=== PATIENT | female | born 1960 | race Caucasian/White ===

== ENCOUNTER 2016-12-18 11:44 | Observation (INO) ==
[2016-12-18] MEDS ORDERED: methylPREDNISolone 125 MG/2 ML VIAL IVP ONE (12:26)
[2016-12-18] MEDS ORDERED: Ondansetron 4 MG/2 ML VIAL IVP ONE ×2 (12:27→15:38)
[2016-12-18] MEDS ORDERED: *HR* HYDROmorphone (PF) 1 MG/ML SYRINGE IVP ONE ×2 (12:27→15:38)
--- NOTE | 2016-12-18 12:30 | Emergency Department Note ---
Disposition Clinical Impression: DJD (degenerative joint disease), lumbar, History of cervical spinal surgery, Weakness of both upper extremities, Left leg weakness, Diverticulosis, Foraminal stenosis of cervical region, Elevated C-reactive protein (CRP), Elevated erythrocyte sedimentation rate, Diabetes Disposition: Admitted As Inpatient Referrals: Akhil Spivey DO [Primary Care Provider] - General Adult HPI - General Chief complaint: ED Neuro Symptoms/Deficit Stated complaint: Upper and Lower Extremity complaint Source: patient Limitations: no limitations - History of Present Illness HPI Narrative: 56-year-old female with a history of cervical surgery within the last year reports emergency department complaining of numbness and weakness in the upper extremities bilaterally and left lower extremity. She woke up this morning this way. There is no history of confusion or dysarthria. No difficulty seeing or hearing. The patient denies acute trauma. She has chronic neck pain and chronic cephalgia. She is not anticoagulated apart from Plavix and aspirin. The patient states that she had a heart catheterization about a week ago which was negative. She has cardiac stents. The patient denies chest pain or shortness of breath. No history of leg swelling or pain or coughing up blood no abdominal pain vomiting diarrhea or acute back pain no urinary symptoms noted. No bowel or bladder problems. The patient has no previous history of CVA. She reports she was in her usual state of health at bedtime last night and woke up with the numbness and weakness in the upper extremities and left lower extremity. Pain Scale: 10 - Related Data Home Medications Medication Instructions Recorded Confirmed Albuterol Neb [AccuNeb] 0.63 mg IH Q6H PRN 12/27/15 12/18/16 Dextroamphetamine/Amphetamine 15 mg PO QAM 12/27/15 12/18/16 [Adderall Xr 15 mg Capsule] Gabapentin [Neurontin] 300 mg PO QID 12/27/15 12/18/16 Levothyroxine [Synthroid] 100 mcg PO QAM 12/27/15 12/18/16 Linaclotide [Linzess] 145 mcg PO DAILY 12/27/15 12/18/16 Metformin HCl [Glucophage] 1,000 mg PO BID 12/27/15 12/18/16 Oxygen 3 l NS HS 12/27/15 12/18/16 Ranitidine HCl [Heartburn Relief] 150 mg PO BID 12/27/15 12/18/16 diazePAM [Valium] 5 mg PO TID PRN 12/27/15 12/18/16 Albuterol Sulfate [Albuterol 1 - 2 puff IH Q4-6H PRN 04/13/16 12/18/16 Inhaler] Budesonide/Formoterol 80/4.5 2 puff IH BID 12/05/16 12/18/16 [Symbicort 80/4.5] Nitroglycerin 0.4 mg SL Q5M PRN 12/05/16 12/18/16 Oxycodone HCl/Acetaminophen 1 each PO Q6H PRN 12/05/16 12/18/16 [Percocet 10-325 mg Tablet] Atorvastatin [Lipitor] 40 mg PO Q48H 12/18/16 12/18/16 Umeclidinium Waite [Incruse 62.5 mcg IH DAILY 12/18/16 12/18/16 Ellipta] Previous Rx's Medication Instructions Recorded Aspirin 81 mg PO DAILY #30 tab.chew 04/12/16 Clopidogrel [Plavix] 75 mg PO DAILY #30 tablet 04/12/16 Carvedilol [Coreg] 6.25 mg PO BIDWM #60 tablet 12/05/16 Isosorbide MONOnitrate (24 HR) 60 mg PO DAILY #30 tab.er.24h 12/05/16 [Imdur] Losartan/HCTZ [Hyzaar 50-12.5 2 each PO DAILY #60 tablet 12/05/16 Tablet] Allergies Allergy/AdvReac Type Severity Reaction Status Date / Time morphine AdvReac Nausea Verified 12/05/16 08:23 All systems ED: reviewed and negative except as stated. Past Medical History - Past Medical History Medical history: Reports: COPD, coronary artery disease, diabetes, hyperlipidemia, hypertension, thyroid disease Surgical history: Reports: appendectomy, cholecystectomy, hysterectomy, orthopedic, other, other Psychiatric history: Reports: no psych history [employer] history: Reports: non-contributory - Social History Smoking Status: Current every day smoker Smokeless Tobacco Status: No Alcohol use: Reports: rarely Drug use: Reports: none Physical Exam - General Limitations: no limitations General appearance: alert, in no apparent distress - Head Head exam: atraumatic, normocephalic, normal inspection - Eye Eye exam: Present: normal appearance, PERRL, EOMI. Absent: scleral icterus, conjunctival injection, miosis, mydriasis - ENT ENT exam: normal exam, normal oropharynx, mucous membranes moist, TM's normal bilaterally, normal external ear exam - Neck Neck exam: Present: normal inspection, full ROM, trachea midline, tenderness. Absent: meningismus - Chest Chest inspection: Present: symmetric chest wall rise. Absent: tenderness - Respiratory Respiratory exam: Present: normal lung sounds bilaterally. Absent: respiratory distress, wheezes, stridor, accessory muscle use, prolonged expiratory phase - Cardiovascular Cardiovascular exam: Present: regular rate, normal rhythm, normal heart sounds - Abdominal Exam Abdominal exam: Present: soft, Non-Tender, normal bowel sounds. Absent: tenderness, distention, guarding, rebound, rigidity, pulsatile mass - Extremities Exam Extremities exam: Present: normal inspection, full ROM, normal capillary refill. Absent: tenderness, pedal edema, joint swelling, calf tenderness - Expanded Lower Extremity Exam Lower leg exam: Absent: Homans' sign Neurovascular/Tendon exam: Present: normal capillary refill. Absent: motor deficit, sensory deficit, tendon deficit, extremity cold to touch, pallor - Back Exam Back exam: Present: normal inspection, full ROM. Absent: tenderness, CVA tenderness (R), CVA tenderness (L), vertebral tenderness - Neurological Exam Neurological exam: Present: alert, oriented X3, CN II-XII intact, motor sensory deficit (Bilateral upper extremity weakness left lower extremity weakness noted. Right lower extremity has good strength. The patient describes numbness in the upper extremities bilaterally and left lower extremity but has no mary objective sensory loss in any extremity.) - Psychiatric Psychiatric exam: Present: normal affect, normal mood - Skin Skin exam: Present: warm, dry, intact, normal color. Absent: rash, cyanosis, diaphoresis, erythema, pallor, mottled Course Vital Signs Temperature 98.0 F 12/18/16 11:46 Pulse Rate 107 12/18/16 11:46 Respiratory Rate 18 12/18/16 11:46 Blood Pressure 165/84 12/18/16 11:46 O2 Sat by Pulse Oximetry 97 12/18/16 11:46 Temperature 98.0 F 12/18/16 11:46 Pulse Rate 91 12/18/16 15:58 Respiratory Rate 18 12/18/16 15:58 Blood Pressure 130/87 12/18/16 15:58 O2 Sat by Pulse Oximetry 97 12/18/16 15:58 Oxygen Delivery Oxygen Delivery Room Air Medical Decision Making - MDM Narrative Medical decision making narrative: The patient complains of bilateral upper extremity weakness and left lower extremity weakness. She is able to move her arms and does have sensation. The patient has a known history of cervical sorter and cervical surgery. Her ESR and CRP are up. The patient is diabetic. The patient was given aspirin ED as well as Solu-Medrol and pain control measures. Based on the patient's concerns for weakness and numbness in the extremities as well as significant risk factors for central or peripheral or spinal disease, I thought it would be appropriate to admit the patient to the hospital. I discussed the case with the hospitalist on-call who has accepted the patient to their care. An MRI of the cervical spine to evaluate further for potential cord issues or infectious processes would be recommended as well as orthopedic spine and neurology consults. The patient is currently stable pending admission to the hospital. - Lab Data Lab results reviewed: Yes I reviewed the patient's lab results. Result diagrams: 12/18/16 12:33 12/18/16 12:33 Lab Results 12/18/16 12/18/16 12/18/16 Range/Units 12:33 12:33 12:33 WBC 8.3 (4.3-11.1) K/mcL RBC 4.67 (3.82-4.97) M/mcL Hgb 13.8 (11.5-15.4) g/dL Hct 42.2 (35.3-44.9) % MCV 90.4 (83.0-100.0) fL MCH 29.6 (28.0-33.3) pg MCHC 32.7 (31.6-35.5) g/dL RDW 12.3 (11.5-14.5) % Plt Count 290 (140-400) K/mcL MPV 10.2 (9.4-12.4) fL Immature Gran % 0.2 (0-4) % Seg Neutrophils % 52.4 % Lymphocytes % 37.8 % Monocytes % 6.4 % Eosinophils % 2.4 % Basophils % 0.8 % Neutrophils # 4.3 (1.6-8.9) K/mcL Lymphocytes # 3.1 (0.6-4.6) K/mcL Monocytes # 0.5 (0.0-1.3) K/mcL Eosinophils # 0.2 (0.0-0.6) K/mcL Basophils # 0.1 (0.0-0.2) K/mcL ESR 52 H (0-15) mm/hr PT 11.9 (9.4-12.1) Seconds INR 1.1 Sodium (136-145) mEq/L Potassium (3.5-4.5) mEq/L Chloride (98-109) mEq/L Carbon Dioxide (19-29) mEq/L BUN (7-20) mg/dL Creatinine (0.57-1.11) mg/dL Est GFR ( Amer) (> 60) Est GFR (Non-Af Amer) (> 60) BUN/Creatinine Ratio (6-26) Glucose (70-99) mg/dL Calculated Osmolality (280-300) Lactic Acid (0.5-2.2) mmol/L Calcium (8.6-10.8) mg/dL Phosphorus (2.3-4.7) mg/dL Magnesium (1.6-2.6) mg/dL Total Bilirubin (0.2-1.2) mg/dL Direct Bilirubin (0.0-0.5) mg/dL Indirect Bilirubin (0.0-1.2) mg/dL AST (5-34) Units/L ALT (0-55) Units/L Alkaline Phosphatase (38-126) Units/L Creatine Kinase (29-168) Units/L Troponin I (0-0.03) ng/mL C-Reactive Protein (Less than 5) mg/L Serum Total Protein (6.0-8.3) g/dL Albumin (3.5-5.0) g/dL Globulin (2.4-3.5) g/dL Albumin/Globulin Ratio (1.1-2.2) 12/18/16 12/18/16 12/18/16 Range/Units 12:33 12:33 12:33 WBC (4.3-11.1) K/mcL RBC (3.82-4.97) M/mcL Hgb (11.5-15.4) g/dL Hct (35.3-44.9) % MCV (83.0-100.0) fL MCH (28.0-33.3) pg MCHC (31.6-35.5) g/dL RDW (11.5-14.5) % Plt Count (140-400) K/mcL MPV (9.4-12.4) fL Immature Gran % (0-4) % Seg Neutrophils % % Lymphocytes % % Monocytes % % Eosinophils % % Basophils % % Neutrophils # (1.6-8.9) K/mcL Lymphocytes # (0.6-4.6) K/mcL Monocytes # (0.0-1.3) K/mcL Eosinophils # (0.0-0.6) K/mcL Basophils # (0.0-0.2) K/mcL ESR (0-15) mm/hr PT (9.4-12.1) Seconds INR Sodium 139 (136-145) mEq/L Potassium 3.7 (3.5-4.5) mEq/L Chloride 103 (98-109) mEq/L Carbon Dioxide 27 (19-29) mEq/L BUN 8 (7-20) mg/dL Creatinine 0.79 (0.57-1.11) mg/dL Est GFR ( Amer) > 60 (> 60) Est GFR (Non-Af Amer) > 60 (> 60) BUN/Creatinine Ratio 10 (6-26) Glucose 178 H (70-99) mg/dL Calculated Osmolality 291 (280-300) Lactic Acid (0.5-2.2) mmol/L Calcium 9.4 (8.6-10.8) mg/dL Phosphorus 3.9 (2.3-4.7) mg/dL Magnesium 2.1 (1.6-2.6) mg/dL Total Bilirubin 0.3 (0.2-1.2) mg/dL Direct Bilirubin 0.1 (0.0-0.5) mg/dL Indirect Bilirubin 0.2 (0.0-1.2) mg/dL AST 10 (5-34) Units/L ALT 10 (0-55) Units/L Alkaline Phosphatase 128 H (38-126) Units/L Creatine Kinase 65 (29-168) Units/L Troponin I 0.01 (0-0.03) ng/mL C-Reactive Protein (Less than 5) mg/L Serum Total Protein 7.1 (6.0-8.3) g/dL Albumin 3.7 (3.5-5.0) g/dL Globulin 3.4 (2.4-3.5) g/dL Albumin/Globulin Ratio 1.1 (1.1-2.2) 12/18/16 12/18/16 Range/Units 12:33 12:40 WBC (4.3-11.1) K/mcL RBC (3.82-4.97) M/mcL Hgb (11.5-15.4) g/dL Hct (35.3-44.9) % MCV (83.0-100.0) fL MCH (28.0-33.3) pg MCHC (31.6-35.5) g/dL RDW (11.5-14.5) % Plt Count (140-400) K/mcL MPV (9.4-12.4) fL Immature Gran % (0-4) % Seg Neutrophils % % Lymphocytes % % Monocytes % % Eosinophils % % Basophils % % Neutrophils # (1.6-8.9) K/mcL Lymphocytes # (0.6-4.6) K/mcL Monocytes # (0.0-1.3) K/mcL Eosinophils # (0.0-0.6) K/mcL Basophils # (0.0-0.2) K/mcL ESR (0-15) mm/hr PT (9.4-12.1) Seconds INR Sodium (136-145) mEq/L Potassium (3.5-4.5) mEq/L Chloride (98-109) mEq/L Carbon Dioxide (19-29) mEq/L BUN (7-20) mg/dL Creatinine (0.57-1.11) mg/dL Est GFR ( Amer) (> 60) Est GFR (Non-Af Amer) (> 60) BUN/Creatinine Ratio (6-26) Glucose (70-99) mg/dL Calculated Osmolality (280-300) Lactic Acid 2.0 (0.5-2.2) mmol/L Calcium (8.6-10.8) mg/dL Phosphorus (2.3-4.7) mg/dL Magnesium (1.6-2.6) mg/dL Total Bilirubin (0.2-1.2) mg/dL Direct Bilirubin (0.0-0.5) mg/dL Indirect Bilirubin (0.0-1.2) mg/dL AST (5-34) Units/L ALT (0-55) Units/L Alkaline Phosphatase (38-126) Units/L Creatine Kinase (29-168) Units/L Troponin I (0-0.03) ng/mL C-Reactive Protein 12 H (Less than 5) mg/L Serum Total Protein (6.0-8.3) g/dL Albumin (3.5-5.0) g/dL Globulin (2.4-3.5) g/dL Albumin/Globulin Ratio (1.1-2.2) - Radiology Data Radiology results reviewed: Yes I reviewed the patient's radiology results.
[2016-12-18 12:53] LABS: Basophils # 0.1 K/mcL (0.0-0.2); Basophils % 0.8 %; Eosinophils # 0.2 K/mcL (0.0-0.6); Eosinophils % 2.4 %; Hematocrit 42.2 % (35.3-44.9); Hemoglobin 13.8 g/dL (11.5-15.4); Immature Granulocytes % 0.2 % (0-4); Lymphocytes # 3.1 K/mcL (0.6-4.6); Lymphocytes % 37.8 %; Mean Corpuscular HGB Conc 32.7 g/dL (31.6-35.5); Mean Corpuscular Hemoglobin 29.6 pg (28.0-33.3); Mean Corpuscular Volume 90.4 fL (83.0-100.0); Mean Platelet Volume 10.2 fL (9.4-12.4); Monocytes # 0.5 K/mcL (0.0-1.3); Monocytes % 6.4 %; Neutrophils # 4.3 K/mcL (1.6-8.9); Platelet Count 290 K/mcL (140-400); Red Blood Count 4.67 M/mcL (3.82-4.97); Red Cell Distribution Width 12.3 % (11.5-14.5); Segmented Neutrophils % 52.4 %
[2016-12-18 12:58] LABS: INR 1.1; Prothrombin Time 11.9 Seconds (9.4-12.1)
[2016-12-18 13:05] LABS: Albumin 3.7 g/dL (3.5-5.0); Albumin/Globulin Ratio 1.1 (1.1-2.2); Bilirubin,Direct 0.1 mg/dL (0.0-0.5); Bilirubin,Indirect 0.2 mg/dL (0.0-1.2); Bilirubin,Total 0.3 mg/dL (0.2-1.2); Globulin 3.4 g/dL (2.4-3.5); Total Protein 7.1 g/dL (6.0-8.3)
[2016-12-18 13:06] LABS: BUN/Creatinine Ratio 10 (6-26); Blood Urea Nitrogen 8 mg/dL (7-20); Calcium 9.4 mg/dL (8.6-10.8); Carbon Dioxide 27 mEq/L (19-29); Chloride 103 mEq/L (98-109); Creatine Kinase 65 Units/L (29-168); Glucose 178 mg/dL (70-99); Magnesium 2.1 mg/dL (1.6-2.6); Osmolality,Calculated 291 (280-300); Phosphorous 3.9 mg/dL (2.3-4.7); Potassium 3.7 mEq/L (3.5-4.5); Sodium 139 mEq/L (136-145); eGFR For African Americans > 60 (> 60); eGFR For Non-African Americans > 60 (> 60)
[2016-12-18] MEDS ORDERED: Aspirin 325 MG TABLET PO ONE (14:30)
[2016-12-18] MEDS ORDERED: Naloxone 0.4 MG/ML INJ IVP PRN (20:20)
[2016-12-18] MEDS ORDERED: *HR* HYDROcodone/Acet 5/325 mg TABLET PO PRN (20:20)
[2016-12-18] MEDS ORDERED: Ondansetron 4 MG/2 ML VIAL IVP PRN (20:20)
[2016-12-18] MEDS ORDERED: Nitroglycerin 0.4 MG TAB.SUBL SL PRN (20:22)
[2016-12-18] MEDS ORDERED: *HR* Dextrose 50 % in Water (Syg) 50 ML SYRINGE IVP PRN (21:02)
[2016-12-18] MEDS ORDERED: Dextrose Gel 15 GM PO PRN ×2 (21:02)
[2016-12-18] MEDS ORDERED: D5% in Water 1,000 ML IVC PRN (21:02)
--- NOTE | 2016-12-18 21:18 | Internal Med History&Physical ---
Date of Encounter: 12/18/16 Time of Encounter: 21:12 Assessment and Plan (1) Weakness of both upper extremities Current visit: Yes Status: Acute Patient presents with weakness and significant pain with movement of BUE and LLE. Patient reports she woke up this way this morning. She does have a history of cervical spinal fusion in the last year and has history of radiculopathy. she follows with Dr. Castillo as an outpatient and it looks like an EMB was planned, though patient has not yet completed it. CT of the cervical spine showed no acute abnormality, stable anterior fusion of C5-C6, and no evidence of central stenosis, however bilateral foraminal stenosis especially on the right. Other imaging without any acute abnormality. ESR and CRP were both elevated suggesting inflammatory process. 125mg of Solu-Medrol given in the emergency department. Pain control with prn Dilaudid. MRI of head and neck Consider consulting Dr. Castillo. (2) Cervical stenosis of spinal canal Current visit: No Status: Chronic Cervical spine CT showed bilateral foraminal stenosis, especially on the right. She is s/p an anterior fusion of c5-C6 and follows with Dr. Castillo. Patient having symptoms of significant pain with movement of bilateral upper extremities and left lower extremity. Neurology consulted by ED and will see patient. MRI of head and neck ordered. Consider also consulting Dr. Castillo. (3) COPD (chronic obstructive pulmonary disease) Current visit: Yes Status: Chronic Patient with COPD, denies any increased shortness of breath or coughing Qualifiers: COPD type: unspecified COPD Qualified Code(s): J44.9 - Chronic obstructive pulmonary disease, unspecified (4) HTN (hypertension) Current visit: No Status: Chronic blood pressure has been controlled since arrival. Continue home doses of HCTZ/ Losartan and coreg. Qualifiers: Hypertension type: essential hypertension Qualified Code(s): I10 - Essential (primary) hypertension (5) Tobacco abuse Current visit: No Status: Chronic Patient reports she smokes 5 cigarettes/day, but is down from 3 packs per day prior to her KS last fall and is working on quitting. Offered encouragement. Smoking cessation education ordered. Nicotine patche ordered. (6) CAD (coronary artery disease) Current visit: Yes Status: Chronic Patient with KS last fall with stent placed in RCA. Patient denies any chest pain or increased shortness of breath. Continue home doses of aspirin, plavix, coreg, imdur, and atorvastatin. Qualifiers: Coronary Disease-Associated Artery/Lesion type: wiyot artery [place] vs. transplanted heart: wiyot heart Associated angina: with unstable angina Qualified Code(s): I25.110 - Atherosclerotic heart disease of wiyot coronary artery with unstable angina pectoris (7) DVT prophylaxis Current visit: No Status: Acute anti-embolic stockings lovenox 40mg SQ daily Internal Medicine - H&P: HPI Chief complaint: BUE pain with movement Admitted From: Emergency Dept Plans for Post Hospital Care: Home History of present illness: Ms. Dickson is a 56 year old female with CAD, HTN, HLD, DM, COPD, history of cervical spine fusion who presented to the ED with complaints of pain and weakness in BUE and LLE. Patient reports that when she woke up this morning, her left arm and left leg had severe pain with any movement in her left arm and left leg, with weakness. She also describes numbness and tingling down the backside of her left leg. She reports her left arm started to have similar symptoms later in the day. She denies any headache, lightheadedness, chest pain , palpitations, vomiting, abdominal pain, diarrhea, dysuria, loss of bowel or bladder control. She reports some shortness of breath occasionally. Evaluation in the ED revealed elevated CRP of 12 and ESR 52. WBC was normal at 8.3. Other labs were grossly normal. CT of the chest abdomen and pelvis showed no aortic dissection, mild diverticulosis, severe degenerative disc disease L5-S1. Head CT showed no acute intracranial abnormality. Cervical spine CT showed no acute abnormality of the cervical spine, stable anterior fusion at C5-C6. On exam, patient alert and oriented, in no acute distress. Heart has regular rate and rhythm. Lungs are clear bilaterally to auscultation. Passive motion of bilateral upper extremities patient is in pain , and is unable to raise either arm above 45 degrees. Left lower extremity has severe pain with passive motion above 30 degrees. Past Med Surg Social Fam HX - Past Medical History Medical history: COPD, coronary artery disease, diabetes, hyperlipidemia, hypertension, thyroid disease Psychiatric history: no psych history - Past Surgical History Surgical History: appendectomy, cholecystectomy, hysterectomy, orthopedic, other (cervical spin fusion, lumbar surgery), other - Social History Smoking Status: Current every day smoker (100 Pack year history) Packs per day: 0.25 Smokeless Tobacco Status: No Alcohol use: rarely Drug use: none - Family History Mother Living Status: Hx Family Cardiac Disorders: Yes (HTN) Hx Family Respiratory Disorders: No Hx Family Cancer: No Hx Family GI Disorders: No Hx Family Endocrine Disorder: Yes (DM, hypothyroidism) Hx Family Neuromuscular Disorders: No Hx Family Neurologic Disorders: Yes (Dementia) Hx Family HEENT Disorders: No Hx Family Autoimmune Disorders: No Father Living Status: Hx Family Cardiac Disorders: Yes (Cardiomegaly, HTN) Hx Family Respiratory Disorders: No Hx Family Cancer: No Hx Family GI Disorders: No Hx Family Endocrine Disorder: Yes (DM) Hx Family Neuromuscular Disorders: No Hx Family Neurologic Disorders: No Hx Family HEENT Disorders: No Hx Family Autoimmune Disorders: No Internal Medicine - H&P: Meds Albuterol Neb [AccuNeb] 0.63 mg IH Q6H PRN 12/27/15 [History] Dextroamphetamine/Amphetamine [Adderall Xr 15 mg Capsule] 15 mg PO QAM 12/27/15 [History] Gabapentin [Neurontin] 300 mg PO QID 12/27/15 [History] Levothyroxine [Synthroid] 100 mcg PO QAM 12/27/15 [History] Linaclotide [Linzess] 145 mcg PO DAILY 12/27/15 [History] Metformin HCl [Glucophage] 1,000 mg PO BID 12/27/15 [History] Oxygen 3 l NS HS 12/27/15 [History] Ranitidine HCl [Heartburn Relief] 150 mg PO BID 12/27/15 [History] diazePAM [Valium] 5 mg PO TID PRN 12/27/15 [History] Aspirin 81 mg PO DAILY #30 tab.chew 04/12/16 [Rx] Clopidogrel [Plavix] 75 mg PO DAILY #30 tablet 04/12/16 [Rx] Albuterol Sulfate [Albuterol Inhaler] 1 - 2 puff IH Q4-6H PRN 04/13/16 [History] Budesonide/Formoterol 80/4.5 [Symbicort 80/4.5] 2 puff IH BID 12/05/16 [History ] Carvedilol [Coreg] 6.25 mg PO BIDWM #60 tablet 12/05/16 [Rx] Isosorbide MONOnitrate (24 HR) [Imdur] 60 mg PO DAILY #30 tab.er.24h 12/05/16 [ Rx] Losartan/HCTZ [Hyzaar 50-12.5 Tablet] 2 each PO DAILY #60 tablet 12/05/16 [Rx] Nitroglycerin 0.4 mg SL Q5M PRN 12/05/16 [History] Oxycodone HCl/Acetaminophen [Percocet 10-325 mg Tablet] 1 each PO Q6H PRN [History] Atorvastatin [Lipitor] 40 mg PO Q48H 12/18/16 [History] Umeclidinium Orange [Incruse Ellipta] 62.5 mcg IH DAILY 12/18/16 [History] Allergies morphine Adverse Reaction (Verified 12/05/16 08:23) Nausea All Systems PM: A 10-system review of systems was performed and is negative for pertinent findings except as documented above in the HPI. - Constitutional Constitutional: no chills, no fever(s), no night sweats - EENT Eyes: no change in vision, no discharge, no pain, no photophobia Ears: no ear discharge, no ear pain, no tinnitus Nose, mouth and throat: no dysphagia, no nasal discharge, no neck pain, no sore throat - Cardiovascular Cardiovascular ROS IM: no chest pain, no diaphoresis, no dyspnea, no lightheadedness, no palpitations, no syncope - Respiratory Respiratory: no cough, no dyspnea, no wheezing, no excessive phlegm production - Gastrointestinal Gastrointestinal: no abdominal pain, no diarrhea, no hematemesis, no hematochezia, no melena, no nausea, no vomiting - Genitourinary Genitourinary: no change in urinary stream, no dysuria, no flank pain, no hematuria - Musculoskeletal Musculoskeletal ROS IM: limited range of motion (due to pain in BUE and LLE), no numbness, no tingling - Integumentary Integumentary IM: no rash, no unusual bruising - Neurological Neurological ROS: focal weakness (BUE, LLE), numbness (back of LLE), tingling ( back of LLL), no confusion, no convulsions, no tremor(s) - Hematologic/Lymphatic Hematologic/Lymphatic: no easy bruising - Constitutional Vitals: Temp Pulse Resp BP Pulse Ox 98.3 F 85 17 126/70 93 12/18/16 18:50 12/18/16 18:50 12/18/16 18:50 12/18/16 18:50 12/18/16 18:50 General appearance: Present: A&O X 3, pleasant, no acute distress - Head Head exam: Present: atraumatic, normocephalic - Eye Eye exam: Present: PERRL, conjuntiva pink, sclera anicteric Pupils: Present: PERRL - Neck Neck exam general surgery: Present: supple, trachea midline. Absent: lymphadenopathy - Respiratory Respiratory exam: Present: CTAB. Absent: accessory muscle use, rales, rhonchi, wheezes - Cardiovascular Cardiovascular exam: Present: RRR, +S1, +S2. Absent: diastolic murmur, gallop, rubs, systolic murmur - GI/Abdominal GI/Abdominal exam: Present: normal bowel sounds, soft, no peritoneal signs. Absent: distended, tenderness - Extremities Exam Extremities exam: Present: warm, radial pulses palpable and symetrical. Absent : calf tenderness, cyanotic, full ROM (secondary to pain), pedal edema, tenderness - Neurological Exam Neurological exam: Present: CN II-XII intact, oriented X3, no focal deficits, strengths equal and symetr throughout. Absent: pronater drift, facial droop, speech deficit - Expanded Neurological Exam Neuro motor strength exam: LUE: 5, RUE: 5, LLE: 5, RLE: 5 - Skin Skin exam: Present: dry, intact Internal Med - H&P Results - Labs CBC & Chem 7: 12/18/16 12:33 12/18/16 12:33 Labs: All Lab Results (24 Hours) 12/18/16 12/18/16 12/18/16 Range/Units 12:33 12:33 12:33 WBC 8.3 (4.3-11.1) K/mcL RBC 4.67 (3.82-4.97) M/mcL Hgb 13.8 (11.5-15.4) g/dL Hct 42.2 (35.3-44.9) % MCV 90.4 (83.0-100.0) fL MCH 29.6 (28.0-33.3) pg MCHC 32.7 (31.6-35.5) g/dL RDW 12.3 (11.5-14.5) % Plt Count 290 (140-400) K/mcL MPV 10.2 (9.4-12.4) fL Immature Gran % 0.2 (0-4) % Seg Neutrophils % 52.4 % Lymphocytes % 37.8 % Monocytes % 6.4 % Eosinophils % 2.4 % Basophils % 0.8 % Neutrophils # 4.3 (1.6-8.9) K/mcL Lymphocytes # 3.1 (0.6-4.6) K/mcL Monocytes # 0.5 (0.0-1.3) K/mcL Eosinophils # 0.2 (0.0-0.6) K/mcL Basophils # 0.1 (0.0-0.2) K/mcL ESR 52 H (0-15) mm/hr PT 11.9 (9.4-12.1) Seconds INR 1.1 Sodium (136-145) mEq/L Potassium (3.5-4.5) mEq/L Chloride (98-109) mEq/L Carbon Dioxide (19-29) mEq/L BUN (7-20) mg/dL Creatinine (0.57-1.11) mg/dL Est GFR ( Amer) (> 60) Est GFR (Non-Af Amer) (> 60) BUN/Creatinine Ratio (6-26) Glucose (70-99) mg/dL Calculated Osmolality (280-300) Lactic Acid (0.5-2.2) mmol/L Calcium (8.6-10.8) mg/dL Phosphorus (2.3-4.7) mg/dL Magnesium (1.6-2.6) mg/dL Total Bilirubin (0.2-1.2) mg/dL Direct Bilirubin (0.0-0.5) mg/dL Indirect Bilirubin (0.0-1.2) mg/dL AST (5-34) Units/L ALT (0-55) Units/L Alkaline Phosphatase (38-126) Units/L Creatine Kinase (29-168) Units/L Troponin I (0-0.03) ng/mL C-Reactive Protein (Less than 5) mg/L Serum Total Protein (6.0-8.3) g/dL Albumin (3.5-5.0) g/dL Globulin (2.4-3.5) g/dL Albumin/Globulin Ratio (1.1-2.2) Urine Color (Yellow) Urine Clarity (Clear) Urine pH (5.0-8.0) pH Units Ur Specific Isabella (1.010-1.025) Urine Protein (Neg-Trace) mg/dL Urine Glucose (UA) (Normal) mg/dL Urine Ketones (Negative) mg/dL Urine Blood (Negative) Urine Nitrite (Negative) Urine Bilirubin (Negative) Urine Urobilinogen (Normal) mg/dL Ur Leukocyte Esterase (Negative) Ur Culture Indicated? (NO) 12/18/16 12/18/16 12/18/16 Range/Units 12:33 12:33 12:33 WBC (4.3-11.1) K/mcL RBC (3.82-4.97) M/mcL Hgb (11.5-15.4) g/dL Hct (35.3-44.9) % MCV (83.0-100.0) fL MCH (28.0-33.3) pg MCHC (31.6-35.5) g/dL RDW (11.5-14.5) % Plt Count (140-400) K/mcL MPV (9.4-12.4) fL Immature Gran % (0-4) % Seg Neutrophils % % Lymphocytes % % Monocytes % % Eosinophils % % Basophils % % Neutrophils # (1.6-8.9) K/mcL Lymphocytes # (0.6-4.6) K/mcL Monocytes # (0.0-1.3) K/mcL Eosinophils # (0.0-0.6) K/mcL Basophils # (0.0-0.2) K/mcL ESR (0-15) mm/hr PT (9.4-12.1) Seconds INR Sodium 139 (136-145) mEq/L Potassium 3.7 (3.5-4.5) mEq/L Chloride 103 (98-109) mEq/L Carbon Dioxide 27 (19-29) mEq/L BUN 8 (7-20) mg/dL Creatinine 0.79 (0.57-1.11) mg/dL Est GFR ( Amer) > 60 (> 60) Est GFR (Non-Af Amer) > 60 (> 60) BUN/Creatinine Ratio 10 (6-26) Glucose 178 H (70-99) mg/dL Calculated Osmolality 291 (280-300) Lactic Acid (0.5-2.2) mmol/L Calcium 9.4 (8.6-10.8) mg/dL Phosphorus 3.9 (2.3-4.7) mg/dL Magnesium 2.1 (1.6-2.6) mg/dL Total Bilirubin 0.3 (0.2-1.2) mg/dL Direct Bilirubin 0.1 (0.0-0.5) mg/dL Indirect Bilirubin 0.2 (0.0-1.2) mg/dL AST 10 (5-34) Units/L ALT 10 (0-55) Units/L Alkaline Phosphatase 128 H (38-126) Units/L Creatine Kinase 65 (29-168) Units/L Troponin I 0.01 (0-0.03) ng/mL C-Reactive Protein (Less than 5) mg/L Serum Total Protein 7.1 (6.0-8.3) g/dL Albumin 3.7 (3.5-5.0) g/dL Globulin 3.4 (2.4-3.5) g/dL Albumin/Globulin Ratio 1.1 (1.1-2.2) Urine Color (Yellow) Urine Clarity (Clear) Urine pH (5.0-8.0) pH Units Ur Specific Isabella (1.010-1.025) Urine Protein (Neg-Trace) mg/dL Urine Glucose (UA) (Normal) mg/dL Urine Ketones (Negative) mg/dL Urine Blood (Negative) Urine Nitrite (Negative) Urine Bilirubin (Negative) Urine Urobilinogen (Normal) mg/dL Ur Leukocyte Esterase (Negative) Ur Culture Indicated? (NO) 12/18/16 12/18/16 12/18/16 Range/Units 12:33 12:40 21:25 WBC (4.3-11.1) K/mcL RBC (3.82-4.97) M/mcL Hgb (11.5-15.4) g/dL Hct (35.3-44.9) % MCV (83.0-100.0) fL MCH (28.0-33.3) pg MCHC (31.6-35.5) g/dL RDW (11.5-14.5) % Plt Count (140-400) K/mcL MPV (9.4-12.4) fL Immature Gran % (0-4) % Seg Neutrophils % % Lymphocytes % % Monocytes % % Eosinophils % % Basophils % % Neutrophils # (1.6-8.9) K/mcL Lymphocytes # (0.6-4.6) K/mcL Monocytes # (0.0-1.3) K/mcL Eosinophils # (0.0-0.6) K/mcL Basophils # (0.0-0.2) K/mcL ESR (0-15) mm/hr PT (9.4-12.1) Seconds INR Sodium (136-145) mEq/L Potassium (3.5-4.5) mEq/L Chloride (98-109) mEq/L Carbon Dioxide (19-29) mEq/L BUN (7-20) mg/dL Creatinine (0.57-1.11) mg/dL Est GFR ( Amer) (> 60) Est GFR (Non-Af Amer) (> 60) BUN/Creatinine Ratio (6-26) Glucose (70-99) mg/dL Calculated Osmolality (280-300) Lactic Acid 2.0 (0.5-2.2) mmol/L Calcium (8.6-10.8) mg/dL Phosphorus (2.3-4.7) mg/dL Magnesium (1.6-2.6) mg/dL Total Bilirubin (0.2-1.2) mg/dL Direct Bilirubin (0.0-0.5) mg/dL Indirect Bilirubin (0.0-1.2) mg/dL AST (5-34) Units/L ALT (0-55) Units/L Alkaline Phosphatase (38-126) Units/L Creatine Kinase (29-168) Units/L Troponin I (0-0.03) ng/mL C-Reactive Protein 12 H (Less than 5) mg/L Serum Total Protein (6.0-8.3) g/dL Albumin (3.5-5.0) g/dL Globulin (2.4-3.5) g/dL Albumin/Globulin Ratio (1.1-2.2) Urine Color Yellow (Yellow) Urine Clarity Clear (Clear) Urine pH 5.5 (5.0-8.0) pH Units Ur Specific Isabella > 1.030 H (1.010-1.025) Urine Protein Negative (Neg-Trace) mg/dL Urine Glucose (UA) >=1000 H (Normal) mg/dL Urine Ketones Negative (Negative) mg/dL Urine Blood Negative (Negative) Urine Nitrite Negative (Negative) Urine Bilirubin Negative (Negative) Urine Urobilinogen Normal (Normal) mg/dL Ur Leukocyte Esterase Negative (Negative) Ur Culture Indicated? NO (NO) - Diagnostic Studies CT scan - head Additional comments: Head CT 12/18/16 12:28 IMPRESSION: No acute intracranial abnormality. D/ / Dc De Jesus MD / Dc De Jesus MD Interpreting Provider: Dc De Jesus MD CT scan - chest Additional comments: Chest CTA 12/18/16 12:28 IMPRESSION: 1. No evidence of aortic dissection. 2. Mild diverticulosis. 3. Status post cholecystectomy. 4. Severe degenerative disc disease at L5-S1. Other Images Additional comments: Cervical Spine CT 12/18/16 12:28 IMPRESSION: No acute abnormality of the cervical spine. Stable anterior fusion at C5-6. No evidence of central stenosis however bilateral foraminal stenosis especially on the right seen at this level. D/ / 12/18/2016 14:24:35 Kailyn Hankins MD / karen Interpreting Provider: Kailyn Hankins MD
[2016-12-18 21:37] LABS: Bilirubin,Urine Negative (Negative); Blood,Urine Negative (Negative); Clarity,Urine Clear (Clear); Color,Urine Yellow (Yellow); Glucose,Urine (UA) >=1000 mg/dL (Normal); Ketones,Urine Negative (Negative); Leukocyte Esterase,Urine Negative (Negative); Nitrite,Urine Negative (Negative); PH,Urine 5.5 pH Units (5.0-8.0); Protein,Urine Negative (Neg-Trace); Specific Gravity,Urine > 1.030 (1.010-1.025); Urobilinogen,Urine Normal (Normal)
[2016-12-18] MEDS: Famotidine 20 MG TABLET PO SCH (21:56)
[2016-12-18] MEDS: Nicotine 7 MG PATCH.TD24 TD SCH (21:56)
[2016-12-18] MEDS: Gabapentin 300 MG CAPSULE PO SCH (21:56)
[2016-12-18] MEDS: Insulin LISPRO 300 UNITS/3 ML VIAL SQ SCH (21:57)
[2016-12-18] MEDS: *HR* HYDROmorphone (PF) 1 MG/ML SYRINGE IVP PRN (21:59)
[2016-12-18] MEDS ORDERED: Albuterol Neb 0.63 MG/3 ML VIAL IH PRN (22:00)
--- NOTE | 2016-12-18 22:54 | Event Note ---
Date of Encounter: 12/18/16 Time of Encounter: 22:51 Patient seen and examined with nurse practitioner. We will get MRI of the head and neck given recent neck surgery ro r/o any evidence of spinal cord injury/ radiculopathy. A dose of steroid or was already given in the emergency room. She is full code
[2016-12-18] MEDS: Budesonide/Formoterol 80/4.5 MDI IH SCH (23:08)
[2016-12-19] MEDS ORDERED: methylPREDNISolone 125 MG/2 ML VIAL IVP SCH
[2016-12-19 04:28] LABS: Basophils % 0.2 %; Hematocrit 40.8 % (35.3-44.9); Hemoglobin 12.9 g/dL (11.5-15.4); Immature Granulocytes % 0.5 % (0-4); Lymphocytes # 1.4 K/mcL (0.6-4.6); Lymphocytes % 16.1 %; Mean Corpuscular HGB Conc 31.6 g/dL (31.6-35.5); Mean Corpuscular Hemoglobin 29.5 pg (28.0-33.3); Mean Corpuscular Volume 93.4 fL (83.0-100.0); Mean Platelet Volume 10.4 fL (9.4-12.4); Monocytes # 0.3 K/mcL (0.0-1.3); Monocytes % 3.6 %; Platelet Count 297 K/mcL (140-400); Red Blood Count 4.37 M/mcL (3.82-4.97); Red Cell Distribution Width 12.4 % (11.5-14.5); Segmented Neutrophils % 79.6 %
[2016-12-19 04:41] LABS: BUN/Creatinine Ratio 12 (6-26); Blood Urea Nitrogen 10 mg/dL (7-20); Calcium 9.3 mg/dL (8.6-10.8); Carbon Dioxide 26 mEq/L (19-29); Chloride 103 mEq/L (98-109); Glucose 250 mg/dL (70-99); Osmolality,Calculated 293 (280-300); Potassium 4.7 mEq/L (3.5-4.5); Sodium 138 mEq/L (136-145); eGFR For African Americans > 60 (> 60); eGFR For Non-African Americans > 60 (> 60)
[2016-12-19] MEDS: *HR* OxyCODONE/APAP 10/325 TABLET PO PRN ×3 (06:00→20:37)
[2016-12-19] MEDS ORDERED: diazePAM 10 MG TABLET PO ONE (08:23)
[2016-12-19] MEDS: Nicotine 7 MG PATCH.TD24 TD SCH (08:25)
[2016-12-19] MEDS: Aspirin 81 MG TAB.CHEW PO SCH (08:26)
[2016-12-19] MEDS: Famotidine 20 MG TABLET PO SCH ×2 (08:26→20:38)
[2016-12-19] MEDS: Isosorbide MONOnitrate (24 HR) 60 MG TAB.ER.24H PO SCH (08:26)
[2016-12-19] MEDS: Gabapentin 300 MG CAPSULE PO SCH ×4 (08:26→20:38)
[2016-12-19] MEDS: Losartan/HCTZ 50-12.5 TABLET PO SCH (08:28)
[2016-12-19] MEDS: AMPHETAMINE PO SCH (08:29)
[2016-12-19] MEDS: DEXTROAMPHETAMINE PO SCH (08:29)
[2016-12-19] MEDS: (Linaclotide [Linzess] 145 MCG) PO SCH (08:29)
[2016-12-19] MEDS: (Umeclidinium Bromide [Incruse Ellipta] 62.5 MCG) IH SCH (08:29)
--- NOTE | 2016-12-19 08:36 | Neurology - Consult Note ---
Date of Encounter: 12/19/16 Time of Encounter: 08:34 Assessment and Plan (1) Cervical stenosis of spinal canal Current Visit: No Status: Chronic I did review the MRI of the cervical spine completed in September 2016. There does seem to be triangulation at the C5-6 and C6-7 levels. I am not able to clearly identify a circumferential CSF presence around the spinal cord at these levels. There also appears to be either a disc or a large osteophyte bulging posteriorly in this region. It is somewhat difficult to sort out what element of her complaints are pain related and what is actually physiologic weakness. The fact that she can move the right lower extremity without any difficulties is suggestive to me that there is truly a physiologic element present here. I did not find any significant long tract signs on exam. She maintains sphincter function. I agree with MRI of the brain, MRI of the cervical spine. I will also add MRI of the lumbar spine. At this juncture I am not suspicious of an acute demyelinating process such as Guillain-[place]. Outpatient EMG will also be helpful. Further recommendations will be made after the MRI studies of the complete. Recommend evaluation from Dr. Castillo as well. I believe pain management may also need to be involved. History of Present Illness HPI: Ms. Dickson is a 56 year old female with a history of ACDF completed at the C5-C6 level in April 2016. Since that time she has had ongoing problems with complaints of neck pain and occipital nuchal headaches. She stated that on the day of admission she awakened with increased weakness of the left upper extremity as well as left leg. She also has complaints of weakness of the right upper extremity but not as profoundly as the left. She also complains of pain in the neck, both upper extremities, the lumbar spine radiating into the left leg. She states that the pain in the left upper extremity radiates from the neck into the left arm and into the left breast region. She maintains full sphincter function. She denies any numbness tingling or weakness of the face. She denies any speech difficulty. She has a history of chronic back pain as well. Past Med Surg Social Fam HX - Past Medical History Medical history: COPD, coronary artery disease, diabetes, hyperlipidemia, hypertension, thyroid disease Psychiatric history: no psych history - Past Surgical History Surgical History: appendectomy, cholecystectomy, hysterectomy, orthopedic, other (cervical spin fusion, lumbar surgery), other - Social History Smoking Status: Current every day smoker (100 Pack year history) Packs per day: 0.25 Smokeless Tobacco Status: No Alcohol use: rarely Drug use: none - Family History Mother Living Status: Hx Family Cardiac Disorders: Yes (HTN) Hx Family Respiratory Disorders: No Hx Family Cancer: No Hx Family GI Disorders: No Hx Family Endocrine Disorder: Yes (DM, hypothyroidism) Hx Family Neuromuscular Disorders: No Hx Family Neurologic Disorders: Yes (Dementia) Hx Family HEENT Disorders: No Hx Family Autoimmune Disorders: No Father Living Status: Hx Family Cardiac Disorders: Yes (Cardiomegaly, HTN) Hx Family Respiratory Disorders: No Hx Family Cancer: No Hx Family GI Disorders: No Hx Family Endocrine Disorder: Yes (DM) Hx Family Neuromuscular Disorders: No Hx Family Neurologic Disorders: No Hx Family HEENT Disorders: No Hx Family Autoimmune Disorders: No Medications and Allergies Albuterol Neb [AccuNeb] 0.63 mg IH Q6H PRN 12/27/15 [History] Dextroamphetamine/Amphetamine [Adderall Xr 15 mg Capsule] 15 mg PO QAM 12/27/15 [History] Gabapentin [Neurontin] 300 mg PO QID 12/27/15 [History] Levothyroxine [Synthroid] 100 mcg PO QAM 12/27/15 [History] Linaclotide [Linzess] 145 mcg PO DAILY 12/27/15 [History] Metformin HCl [Glucophage] 1,000 mg PO BID 12/27/15 [History] Oxygen 3 l NS HS 12/27/15 [History] Ranitidine HCl [Heartburn Relief] 150 mg PO BID 12/27/15 [History] diazePAM [Valium] 5 mg PO TID PRN 12/27/15 [History] Aspirin 81 mg PO DAILY #30 tab.chew 04/12/16 [Rx] Clopidogrel [Plavix] 75 mg PO DAILY #30 tablet 04/12/16 [Rx] Albuterol Sulfate [Albuterol Inhaler] 1 - 2 puff IH Q4-6H PRN 04/13/16 [History] Budesonide/Formoterol 80/4.5 [Symbicort 80/4.5] 2 puff IH BID 12/05/16 [History ] Carvedilol [Coreg] 6.25 mg PO BIDWM #60 tablet 12/05/16 [Rx] Isosorbide MONOnitrate (24 HR) [Imdur] 60 mg PO DAILY #30 tab.er.24h 12/05/16 [ Rx] Losartan/HCTZ [Hyzaar 50-12.5 Tablet] 2 each PO DAILY #60 tablet 12/05/16 [Rx] Nitroglycerin 0.4 mg SL Q5M PRN 12/05/16 [History] Oxycodone HCl/Acetaminophen [Percocet 10-325 mg Tablet] 1 each PO Q6H PRN [History] Atorvastatin [Lipitor] 40 mg PO Q48H 12/18/16 [History] Umeclidinium [place] [Incruse Ellipta] 62.5 mcg IH DAILY 12/18/16 [History] Allergies morphine Adverse Reaction (Verified 12/05/16 08:23) Nausea All Systems: A 10-system review of systems was performed and is negative for pertinent findings except as documented above in the HPI. Review of Systems: Review of systems is consistent with the history of present illness and otherwise negative. Physical Examination - Vital Signs Vital Signs: Initial Vital Signs Temp Pulse Resp BP Pulse Ox 98.0 F 107 18 165/84 97 12/18/16 11:46 12/18/16 11:46 12/18/16 11:46 12/18/16 11:46 12/18/16 11:46 - Exam Exam: Cerebral functions-she is awake, alert, and oriented to person place and time. She follows commands and answers questions appropriately. No agnosia, aphasia, or apraxia are present. Judgment and abstract thinking are intact. Cranial nerves-pupils are equal and reactive to light and accommodation, extraocular motility is intact, sensory to face is intact, mastication is intact. There is no facial asymmetry identified. Hearing is intact symmetrically. Soft palate elevates bilaterally upon phonation. Tongue protrudes midline. Motor exam-he is a difficult assessment secondary to the pain limiting factor. She is able to raise the right arm completely above her head. She is able to flex the right arm to gravity, she extends at the right elbow, right supervisor particleboard strength is 5 over 5. She has difficulty raising the left arm above her head she can raise to about 90 degrees. If I passively move raise the arm above her head on the left she does complain of pain radiating into the left armpit and breast. She is able to flex her left biceps is able to stand at the left triceps the left supervisor particleboard strength is diminished at 3/5. There are no involuntary movements identified of the upper extremities. No atrophy present of the upper extremities. She maintains full power of the right lower extremity and all muscles. She has limited ability to bend the left knee she is also weak in dorsiflexion of the left ankle she is weak and plantar flexion. She is able to raise the left leg off the bed with the knee fully extended but she cannot hold it there for long. No involuntary movements or atrophy identified of either lower extremity. Left straight leg raising is negative. Sensory exam finds patchy areas of hypoesthesia involving all 4 extremities. Deep tendon reflexes- 2/4 of the right biceps, 1/4 of the right triceps, 2/4 right brachial radialis. The left biceps and brachial radialis reflexes are 2+ . Left triceps reflex is 1/4, patellar reflexes are 1 symmetrically, Achilles reflexes are absent symmetrically.there are no long tract signs identified no Babinski sign, no ankle clonus. Results - Laboratory Findings CBC and BMP: 12/19/16 03:27 12/19/16 03:27 Abnormal lab findings: Abnormal lab results ESR 52 mm/hr (0-15) H 12/18/16 12:33 Potassium 4.7 mEq/L (3.5-4.5) H D 12/19/16 03:27 Glucose 250 mg/dL (70-99) H 12/19/16 03:27 POC Glucose 295 (58-89) H 12/18/16 20:32 Alkaline Phosphatase 128 Units/L (38-126) H 12/18/16 12:33 C-Reactive Protein 12 mg/L (Less than 5) H 12/18/16 12:33 Ur Specific [place] > 1.030 (1.010-1.025) H 12/18/16 21:25 Urine Glucose (UA) >=1000 mg/dL (Normal) H 12/18/16 21:25 Consult Discharge Plan - Plan Referrals: Akhil Spivey DO [Primary Care Provider] -
[2016-12-19] MEDS: Budesonide/Formoterol 80/4.5 MDI IH SCH ×2 (11:01→20:43)
[2016-12-19] MEDS: Insulin LISPRO 300 UNITS/3 ML VIAL SQ SCH ×4 (11:15→20:38)
[2016-12-19] MEDS: *HR* HYDROmorphone (PF) 1 MG/ML SYRINGE IVP PRN (13:28)
--- NOTE | 2016-12-19 17:31 | Internal Med Progress Note ---
Date of Encounter: 12/19/16 Time of Encounter: 08:35 - Assessment and plan (1) Cervical stenosis of spinal canal Current Visit: Yes Status: Chronic Assessment and plan: Upper C-spine MRI: In C3-C4 there is disc and osteophytes narrowing the neural foramina bilaterally. C4-C5 there is disc protrusion or osteophyte measuring 2- 3 mm this results in mild narrowing of the neural foramina bilaterally. C6-C7 there is disc protrusion or osteophyte measuring 2-3 mm towards the left. There is narrowing of the left neural foramen greater than the right. C7-T1 the thecal sac and neural foramina are intact. She is a previous anterior fusion at C5-6 is new since previous study. Hardware artifact obscures and distorts anatomic detail at these levels. Disc and osteophytes result in stenosis of the thecal sac and narrowing of the neural foramina throughout the cervical region. Patient does have obvious weakness to the left side both upper and lower extremities. Patient is being followed by neurology. We will continue to follow his recommendations. (2) Weakness of both upper extremities Current Visit: Yes Status: Acute Assessment and plan: Plan as above. Both upper and lower extremities are weak, noticeably more weak on left than on the right. Patient is unable to keep left leg raised from bed. Grasp on right side is very weak, almost nonexistent. There is no facial involvement. (3) COPD (chronic obstructive pulmonary disease) Current Visit: Yes Status: Chronic Assessment and plan: Lungs are clear and diminished throughout. Patient has difficulty leaning forward and with deep inspiration due to back pain. She denies any increased shortness of breath or dyspnea, denies new cough. There is no acute exacerbation. Continue home medications and monitor patient condition. Qualifiers: COPD type: unspecified COPD Qualified Code(s): J44.9 - Chronic obstructive pulmonary disease, unspecified (4) HLD (hyperlipidemia) Current Visit: No Status: Chronic Assessment and plan: Chronic. Continue home medications. Qualifiers: Hyperlipidemia type: mixed hyperlipidemia Qualified Code(s): E78.2 - Mixed hyperlipidemia (5) HTN (hypertension) Current Visit: No Status: Chronic Assessment and plan: Chronic. Continue home medications. Qualifiers: Hypertension type: essential hypertension Qualified Code(s): I10 - Essential (primary) hypertension (6) Tobacco abuse Current Visit: No Status: Chronic Assessment and plan: Patient is not interested in smoking cessation at this time will speak with patient about this again prior to discharge. Patient reports that she has decreased her smoking drastically from 3 packs to less than half. (7) CAD (coronary artery disease) Current Visit: Yes Status: Chronic Assessment and plan: Prior VT last fall with stent placed in RCA. No chest pain or shortness of breath. Continue aspirin, Plavix, Coreg, Imdur, and atorvastatin Qualifiers: Coronary Disease-Associated Artery/Lesion type: [place] artery [place] vs. transplanted heart: [place] heart Associated angina: with unstable angina Qualified Code(s): I25.110 - Atherosclerotic heart disease of [place] coronary artery with unstable angina pectoris (8) Diabetes Current Visit: Yes Status: Acute Assessment and plan: Continue sliding scale insulin Continue Accu-Cheks before meals at bedtime Diabetic diet A1c 6.6 in July. Repeat A1c ordered for morning. Qualifiers: Diabetes mellitus type: type 2 Diabetes mellitus complication status: without complication Diabetes mellitus joint terminal attack controller insulin use: unspecified nursing home insulin use status Qualified Code(s): E11.9 - Type 2 diabetes mellitus without complications (9) DVT prophylaxis Current Visit: No Status: Acute Assessment and plan: JOSE ewelina. Lovenox subcutaneous daily. - Time Spent With Patient less than 15 minutes - Subjective Interval history: Patient was seen and assessed this morning at 8:35 AM. She was alert and oriented, somewhat slow to respond at times. She gets her questions appropriately. She is decidedly noticeable weakness on the left. There is no facial droop. Patient was seen by neurology today. He and I did discuss referring her to pain management to ensure that she is receiving adequate pain control. At this time, she says that she is still having pain. I did discuss with her that I did not feel comfortable sending her with IV Dilaudid, by mouth Percocet, and Valium for her MRI today. She did appear to be able to complete the testing. I have put a consult for Dr. Castillo to see patient tomorrow. I did not complete the phone call as it is already after 5:00 PM. Patient does not appear to have any difficulty with her right side, she is able to hold her legs off the bed, and although she is weak in all extremities, is more noticeable in the left than the right. Her hand grasps are weak bilaterally, however it is more noticeable on the left on the right. Neurology added MRI of the lumbar spine today. She has already had an MRI of the brain and the cervical spine. It is recommended that she have an outpatient EMG. Neurology is following and has not signed off yet. I appreciate his consultation and recommendations. - Constitutional Vitals: Temp Pulse Resp BP Pulse Ox 97.4 F L 81 18 100/62 92 12/19/16 15:28 12/19/16 15:28 12/19/16 15:28 12/19/16 15:28 12/19/16 15:28 General appearance: Present: A&O X 3, pleasant, no acute distress, answers questions appropriately - Head Head exam: Present: normal inspection - Eye Eye exam: Present: normal appearance, conjuntiva pink - ENT ENT exam: Present: mucous membranes moist, normal exam - Neck Neck exam general surgery: Present: trachea midline. Absent: lymphadenopathy, tenderness - Respiratory Respiratory exam: Present: decreased breath sounds. Absent: rales, respiratory distress, rhonchi, wheezes Additional comments: Due to pain with inspiration. - Cardiovascular Cardiovascular exam: Present: RRR, +S1, +S2. Absent: bradycardia, diastolic murmur, systolic murmur, tachycardia - GI/Abdominal GI/Abdominal exam: Present: normal bowel sounds, soft. Absent: hepatomegaly, tenderness - Extremities Exam Extremities exam: Present: normal capillary refill, warm, radial pulses palpable and symetrical. Absent: mottling, pedal edema, tenderness - Neurological Exam Neurological exam: Present: alert, altered, CN II-XII intact, oriented X3. Absent: strengths equal and symetr throughout, facial droop, speech deficit - Skin Skin exam: Present: dry, intact, normal color, warm Internal Medicine: Result - Labs CBC & Chem 7: 12/19/16 03:27 12/19/16 03:27 Labs: Short CBC 12/19/16 Range/Units 03:27 WBC 8.7 (4.3-11.1) K/mcL Hgb 12.9 (11.5-15.4) g/dL Hct 40.8 (35.3-44.9) % Plt Count 297 (140-400) K/mcL Neutrophils # 7.0 (1.6-8.9) K/mcL BMP 12/19/16 03:27 Sodium 138 Potassium 4.7 H D Chloride 103 Carbon Dioxide 26 BUN 10 Creatinine 0.82 Glucose 250 H Calcium 9.3 Urine 12/18/16 Range/Units 21:25 Urine Color Yellow (Yellow) Urine Clarity Clear (Clear) Urine pH 5.5 (5.0-8.0) pH Units Ur Specific [place] > 1.030 H (1.010-1.025) Urine Protein Negative (Neg-Trace) mg/dL Urine Glucose (UA) >=1000 H (Normal) mg/dL - ABG Interpretation ABG results: PT/INR, D-dimer PT 11.9 Seconds (9.4-12.1) 12/18/16 12:33 - Impressions Impressions Chest X-Ray 12/18/16 22:29 IMPRESSION: No acute abnormality. If cough continues, consider follow-up imaging D/ / David Hyde / David Hyde Interpreting Provider: David Hyde Lumbar Spine MRI 12/19/16 08:54 IMPRESSION: Disc and osteophytes result in narrowing of the neural foramina at L3-4, L4-5, and L5-S1. No stenosis of the thecal sac in the lumbar region. There is a disc protrusion toward the right at T12-L1 narrowing the right neural foramen. There may be a transitional vertebral body. For the sake of this dictation there is a tiny S1 disc. Correlation with plain films prior to surgical intervention is suggested. D/ / 12/19/2016 11:23:49 Nimo Bonilla MD / [facility] Interpreting Provider: Nimo Bonilla MD Brain MRI 12/19/16 09:15 IMPRESSION: No acute brain parenchymal abnormality. D/ / 12/19/2016 11:43:20 Nimo Bonilla MD / Karissa Ureña Interpreting Provider: Nimo Bonilla MD Cervical Spine MRI 12/19/16 09:15 IMPRESSION: Previous anterior fusion at C5-6 which is new since the previous study. Hardware artifact obscures and distorts anatomic detail at these levels. Motion artifact degrades the images. Disc and osteophytes result in stenosis of the thecal sac and narrowing of the neural foramina throughout the cervical region as discussed in detail above. D/ / 12/19/2016 11:40:25 Nimo Bonilla MD / [facility]me Interpreting Provider: Nimo Bonilla MD Consult Discharge Plan - Plan Referrals: Maria Antonia Rae CNP [Advanced Practice Nurse] - 12/26/16 1:30 pm Akhil Spivey DO [Primary Care Provider] -
--- NOTE | 2016-12-19 18:57 | Electrocardiograph Report ---
[place] [id number] Test Date: 2016-12-18 Pat Name: Juanita Dickson Department: 105 Room: 3B13 Gender: F Hand Bander: WIL : 1960 Requested By: Gold Silva Order Number: [id number] Reading MD: Guadalupe Brennan Measurements Intervals [place] Rate: 93 P: 64 AR: 141 QRS: 78 QRSD: 95 T: 55 QT: 380 QTc: 431 Interpretive Statements SINUS RHYTHM Electronically Signed On 12-19-2016 18:55:37 EDT by Guadalupe Brennan
[2016-12-19] MEDS ORDERED: Insulin LISPRO 300 UNITS/3 ML VIAL SQ SCH (21:00)
[2016-12-20] MEDS: Gabapentin 300 MG CAPSULE PO SCH ×5 (02:15→20:19)
[2016-12-20] MEDS: *HR* HYDROmorphone (PF) 1 MG/ML SYRINGE IVP PRN ×4 (03:26→22:44)
[2016-12-20] MEDS: *HR* OxyCODONE/APAP 10/325 TABLET PO PRN ×3 (06:39→21:51)
[2016-12-20] MEDS: Budesonide/Formoterol 80/4.5 MDI IH SCH ×2 (08:45→20:37)
[2016-12-20 09:30] LABS: Basophils # 0.1 K/mcL (0.0-0.2); Basophils % 0.8 %; Eosinophils # 0.1 K/mcL (0.0-0.6); Eosinophils % 1.2 %; Immature Granulocytes % 0.5 % (0-4); Lymphocytes # 4.5 K/mcL (0.6-4.6); Lymphocytes % 42.3 %; Mean Corpuscular Hemoglobin 29.5 pg (28.0-33.3); Mean Corpuscular Volume 95.2 fL (83.0-100.0); Mean Platelet Volume 10.2 fL (9.4-12.4); Monocytes # 0.6 K/mcL (0.0-1.3); Monocytes % 5.8 %; Neutrophils # 5.3 K/mcL (1.6-8.9); Platelet Count 289 K/mcL (140-400); Red Blood Count 4.41 M/mcL (3.82-4.97); Red Cell Distribution Width 12.6 % (11.5-14.5); Segmented Neutrophils % 49.4 %
[2016-12-20 09:33] LABS: BUN/Creatinine Ratio 20 (6-26); Blood Urea Nitrogen 17 mg/dL (7-20); Carbon Dioxide 28 mEq/L (19-29); Chloride 100 mEq/L (98-109); Glucose 147 mg/dL (70-99); Osmolality,Calculated 288 (280-300); Potassium 4.1 mEq/L (3.5-4.5); Sodium 137 mEq/L (136-145); eGFR For African Americans > 60 (> 60); eGFR For Non-African Americans > 60 (> 60)
[2016-12-20] MEDS: Insulin LISPRO 300 UNITS/3 ML VIAL SQ SCH ×4 (09:48→20:19)
[2016-12-20] MEDS: (Umeclidinium Bromide [Incruse Ellipta] 62.5 MCG) IH SCH (09:51)
[2016-12-20] MEDS: DEXTROAMPHETAMINE PO SCH (09:51)
[2016-12-20] MEDS: (Linaclotide [Linzess] 145 MCG) PO SCH (09:51)
[2016-12-20] MEDS: AMPHETAMINE PO SCH (09:51)
[2016-12-20] MEDS: Isosorbide MONOnitrate (24 HR) 60 MG TAB.ER.24H PO SCH (10:12)
[2016-12-20] MEDS: Aspirin 81 MG TAB.CHEW PO SCH (10:12)
[2016-12-20] MEDS: Famotidine 20 MG TABLET PO SCH ×2 (10:12→20:18)
[2016-12-20] MEDS: Losartan/HCTZ 50-12.5 TABLET PO SCH (10:12)
[2016-12-20] MEDS: Nicotine 7 MG PATCH.TD24 TD SCH (10:14)
[2016-12-20] MEDS: methylPREDNISolone 125 MG/2 ML VIAL IVP SCH ×3 (12:24→22:45)
--- NOTE | 2016-12-20 18:20 | Spinal Consult Note ---
Date of Encounter: 12/20/16 Time of Encounter: 18:18 Assessment and Plan (1) Neural foraminal stenosis of cervical spine Current Visit: Yes Status: Chronic On exam she is afebrile vital signs stable. She appears to be in mild distress secondary to arm, shoulder, and leg pain. She has a negative Nhi sign. She has no clonus. It is difficult to do a convincing motor examination due to patient guarding. She states she is unable to move her left arm, however when passively moved a raised in an abducted and elevated position she is able to maintain its position when distracted. I detect no focal motor neurologic deficits in the lower extremities. Her hips move symmetrically. He has a negative straight leg raise. MRI of the cervical spine reveals an instrumented cervical fusion C5-6 without apparent complication. There are multilevel degenerative changes and foraminal stenosis essentially throughout the cervical spine. MRI of the lumbar spine also shows multilevel degenerative changes and foraminal stenosis. Impression: 1) foraminal stenosis of the cervical spine 2) status post cervical fusion 3) occipital headache 4) lumbar degenerative disc disease 5) foraminal stenosis of the lumbar spine Plan: I see no evidence of cervical myelopathy or focal lesion that requires urgent surgical intervention. She has diffuse and chronic pain complaints and is seen Dr. Linton in interventional pain management in the past. I think she should resume interventional treatment options on an outpatient basis. I also recommend inpatient and outpatient physical therapy for the neck and lower extremities to include strengthening and gait training. I believe additional objective data to support her subjective radicular symptoms in the upper and lower extremities is warranted. In this regard I will have her complete her EMG of the left upper and lower extremities by Dr. Layne as scheduled unless Dr. Yaakov Charles sees a need for these studies to be more urgently completed. She can follow up in my office in approximately one month after completion of her electromyelographic studies. The patient understands and is amenable to the care plan including the understanding that she does not require urgent surgical intervention. (2) Status post cervical spinal fusion Current Visit: Yes Status: Chronic (3) Occipital headache Current Visit: Yes Status: Chronic (4) Cervical radiculopathy Current Visit: No Status: Chronic History of Present Illness Chief complaint: Left arm and left leg pain and weakness. Numbness in middle toes left foot HPI: Ms. Dickson is a 56 year old female Well known to the practice who has had long-standing neck pain and occipital headaches. On this admission she has dated that she has had some acute bilateral upper extremity weakness left greater than right as well as weakness in the left leg interfering with ambulation. She denies any bowel bladder changes. He has a history of previous anterior cervical fusion C5-C6 with uneventful postoperative course. She is a patient of Dr. Linton an interventional pain management for diffuse chronic pain complaints. She was scheduled for an EMG of the left upper extremity by Dr. Layne this month but her appointment is rescheduled till later this month. We are asked to see regarding her subjective pain complaints as well as concerns for weakness. She denies any fevers, chills. Past Med Surg Social Fam HX - Past Medical History Medical history: COPD, coronary artery disease, diabetes, hyperlipidemia, hypertension, thyroid disease Psychiatric history: no psych history - Past Surgical History Surgical History: appendectomy, cholecystectomy, hysterectomy, orthopedic, other (cervical spin fusion, lumbar surgery), other - Social History Smoking Status: Current every day smoker (100 Pack year history) Packs per day: 0.25 Smokeless Tobacco Status: No Alcohol use: rarely Drug use: none - Family History Mother Living Status: Hx Family Cardiac Disorders: Yes (HTN) Hx Family Respiratory Disorders: No Hx Family Cancer: No Hx Family GI Disorders: No Hx Family Endocrine Disorder: Yes (DM, hypothyroidism) Hx Family Neuromuscular Disorders: No Hx Family Neurologic Disorders: Yes (Dementia) Hx Family HEENT Disorders: No Hx Family Autoimmune Disorders: No Father Living Status: Hx Family Cardiac Disorders: Yes (Cardiomegaly, HTN) Hx Family Respiratory Disorders: No Hx Family Cancer: No Hx Family GI Disorders: No Hx Family Endocrine Disorder: Yes (DM) Hx Family Neuromuscular Disorders: No Hx Family Neurologic Disorders: No Hx Family HEENT Disorders: No Hx Family Autoimmune Disorders: No Medications and Allergies Albuterol Neb [AccuNeb] 0.63 mg IH Q6H PRN 12/27/15 [History] Dextroamphetamine/Amphetamine [Adderall Xr 15 mg Capsule] 15 mg PO QAM 12/27/15 [History] Gabapentin [Neurontin] 300 mg PO QID 12/27/15 [History] Levothyroxine [Synthroid] 100 mcg PO QAM 12/27/15 [History] Linaclotide [Linzess] 145 mcg PO DAILY 12/27/15 [History] Metformin HCl [Glucophage] 1,000 mg PO BID 12/27/15 [History] Oxygen 3 l NS HS 12/27/15 [History] Ranitidine HCl [Heartburn Relief] 150 mg PO BID 12/27/15 [History] diazePAM [Valium] 5 mg PO TID PRN 12/27/15 [History] Aspirin 81 mg PO DAILY #30 tab.chew 04/12/16 [Rx] Clopidogrel [Plavix] 75 mg PO DAILY #30 tablet 04/12/16 [Rx] Albuterol Sulfate [Albuterol Inhaler] 1 - 2 puff IH Q4-6H PRN 04/13/16 [History] Budesonide/Formoterol 80/4.5 [Symbicort 80/4.5] 2 puff IH BID 12/05/16 [History ] Carvedilol [Coreg] 6.25 mg PO BIDWM #60 tablet 12/05/16 [Rx] Isosorbide MONOnitrate (24 HR) [Imdur] 60 mg PO DAILY #30 tab.er.24h 12/05/16 [ Rx] Losartan/HCTZ [Hyzaar 50-12.5 Tablet] 2 each PO DAILY #60 tablet 12/05/16 [Rx] Nitroglycerin 0.4 mg SL Q5M PRN 12/05/16 [History] Oxycodone HCl/Acetaminophen [Percocet 10-325 mg Tablet] 1 each PO Q6H PRN [History] Atorvastatin [Lipitor] 40 mg PO Q48H 12/18/16 [History] Umeclidinium [place] [Incruse Ellipta] 62.5 mcg IH DAILY 12/18/16 [History] Allergies morphine Adverse Reaction (Verified 12/05/16 08:23) Nausea Results - Labs Result Diagrams: 12/20/16 09:15 12/20/16 09:15 Labs: Abnormal lab results MCHC 31.0 g/dL (31.6-35.5) L 12/20/16 09:15 ESR 52 mm/hr (0-15) H 12/18/16 12:33 Glucose 147 mg/dL (70-99) H 12/20/16 09:15 POC Glucose 194 (58-89) H 12/19/16 20:29 Hemoglobin A1c 7.0 % (-5.6) H 12/20/16 09:15 Alkaline Phosphatase 128 Units/L (38-126) H 12/18/16 12:33 C-Reactive Protein 12 mg/L (Less than 5) H 12/18/16 12:33 Ur Specific [employer] > 1.030 (1.010-1.025) H 12/18/16 21:25 Urine Glucose (UA) >=1000 mg/dL (Normal) H 12/18/16 21:25 Nasal Screen MRSA (PCR) Positive (Negative) A 12/19/16 13:20 All other labs normal. Consult Discharge Plan - Plan Referrals: Maria Antonia Rae CNP [Advanced Practice Nurse] - 12/26/16 1:30 pm Akhil Spivey DO [Primary Care Provider] -
--- NOTE | 2016-12-20 18:23 | Neurology Progress Note ---
Date of Encounter: 12/20/16 Time of Encounter: 18:21 Assessment and Plan (1) Cervical stenosis of spinal canal Current Visit: Yes Status: Chronic Earlier today I started Juanita on methylprednisolone 125 mg IV PB every 6 hours. She seems to be somewhat improved. Perhaps this may suggest a myelopathic component. However I also believe that there is a strong pain, somatic component. We will continue the methylprednisolone and see whether or not she makes even further improvements tomorrow. Ultimately however pain management is going to be a mainstay of her therapy particularly if she is ever going to be able to get back to leading a normal productive life. Subjective Interval history: Juanita Dickson was seen for neurologic follow-up today regarding generalized pain and weakness. She still focuses on her neck pain and pain radiating into the left upper extremity. She still has some weakness of the left lower extremity however when asked where she improved today after being on the steroids she feels as though she is somewhat improved. She can move the right leg completely. Her neurologic examination is essentially unchanged. She is paucity of movement of the left lower extremity and the left upper extremity. She is tolerating the steroid therapy without difficulty. Repeat MRI scan of the cervical spine reveals the previous area of surgical intervention, there is triangulation of the central canal at the C56 and C6-7 levels. Her deep tendon reflexes are normal of the upper extremities and increased at the patella symmetrically. Achilles reflexes are absent. No sphincter abnormalities. Objective - Constitutional Vitals: Temp Pulse Resp BP Pulse Ox 97.9 F 77 15 121/71 94 12/20/16 15:20 12/20/16 15:20 12/20/16 15:20 12/20/16 15:20 12/20/16 15:20 Results - Laboratory Findings CBC and BMP: 12/20/16 09:15 12/20/16 09:15 Abnormal lab findings: Abnormal lab results MCHC 31.0 g/dL (31.6-35.5) L 12/20/16 09:15 ESR 52 mm/hr (0-15) H 12/18/16 12:33 Glucose 147 mg/dL (70-99) H 12/20/16 09:15 POC Glucose 194 (58-89) H 12/19/16 20:29 Hemoglobin A1c 7.0 % (-5.6) H 12/20/16 09:15 Alkaline Phosphatase 128 Units/L (38-126) H 12/18/16 12:33 C-Reactive Protein 12 mg/L (Less than 5) H 12/18/16 12:33 Ur Specific [place] > 1.030 (1.010-1.025) H 12/18/16 21:25 Urine Glucose (UA) >=1000 mg/dL (Normal) H 12/18/16 21:25 Nasal Screen MRSA (PCR) Positive (Negative) A 12/19/16 13:20 Consult Discharge Plan - Plan Referrals: Maria Antonia Rae CNP [Advanced Practice Nurse] - 12/26/16 1:30 pm Akhil Spivey DO [Primary Care Provider] -
--- NOTE | 2016-12-20 18:40 | Internal Med Progress Note ---
Date of Encounter: 12/20/16 Time of Encounter: 08:30 - Assessment and plan (1) Cervical stenosis of spinal canal Current Visit: Yes Status: Chronic Assessment and plan: Patient was started on methylprednisolone 125 mg IV every 6 hours. Neurology did seem to notice some improvement today which may be suggestive of a myelopathic component. Will continue the steroid and reassess tomorrow. Neurology will continue to all open. She was also seen by Dr. Castillo today. He does not feel that he requires surgery at this time and should be seen by pain management. I appreciate his recommendation and will continue to follow the recommendations of neurology, as well. Upper C-spine MRI: In C3-C4 there is disc and osteophytes narrowing the neural foramina bilaterally. C4-C5 there is disc protrusion or osteophyte measuring 2- 3 mm this results in mild narrowing of the neural foramina bilaterally. C6-C7 there is disc protrusion or osteophyte measuring 2-3 mm towards the left. There is narrowing of the left neural foramen greater than the right. C7-T1 the thecal sac and neural foramina are intact. She is a previous anterior fusion at C5-6 is new since previous study. Hardware artifact obscures and distorts anatomic detail at these levels. Disc and osteophytes result in stenosis of the thecal sac and narrowing of the neural foramina throughout the cervical region. Patient does have obvious weakness to the left side both upper and lower extremities. Patient is being followed by neurology. We will continue to follow his recommendations. (2) Weakness of both upper extremities Current Visit: Yes Status: Acute Assessment and plan: Plan as above. Both upper and lower extremities are weak, noticeably more weak on left than on the right. Patient is unable to keep left leg raised from bed. Grasp on right side is very weak, almost nonexistent. There is no facial involvement. Exam appears to be virtually unchanged from yesterday. She was seen by neurology later in the afternoon he feels there is some improvement. We will continue Solu-Medrol IV every 6 hours. We will reassess again tomorrow. (3) COPD (chronic obstructive pulmonary disease) Current Visit: Yes Status: Chronic Assessment and plan: Lungs are clear and diminished throughout. She denies any increased shortness of breath or dyspnea, denies new cough. There is no acute exacerbation. Continue home medications and monitor patient condition. Qualifiers: COPD type: unspecified COPD Qualified Code(s): J44.9 - Chronic obstructive pulmonary disease, unspecified (4) HLD (hyperlipidemia) Current Visit: No Status: Chronic Assessment and plan: Chronic. Continue home medications. Qualifiers: Hyperlipidemia type: mixed hyperlipidemia Qualified Code(s): E78.2 - Mixed hyperlipidemia (5) HTN (hypertension) Current Visit: No Status: Chronic Assessment and plan: Chronic. Continue home medications. Qualifiers: Hypertension type: essential hypertension Qualified Code(s): I10 - Essential (primary) hypertension (6) Tobacco abuse Current Visit: No Status: Chronic Assessment and plan: Patient states that she has not been smoking since she has been here. She said she may be able to quit. I would like to revisit smoking cessation upon discharge. (7) CAD (coronary artery disease) Current Visit: Yes Status: Chronic Assessment and plan: Prior [place] last fall with stent placed in RCA. No chest pain or shortness of breath. Continue aspirin, Plavix, Coreg, Imdur, and atorvastatin Qualifiers: Coronary Disease-Associated Artery/Lesion type: [place] artery [place] vs. transplanted heart: [place] heart Associated angina: with unstable angina Qualified Code(s): I25.110 - Atherosclerotic heart disease of [place] coronary artery with unstable angina pectoris (8) Diabetes Current Visit: Yes Status: Acute Assessment and plan: Continue sliding scale insulin Continue Accu-Cheks before meals at bedtime Diabetic diet A1c 6.6 in July. Repeat A1c 7.0% today. Qualifiers: Diabetes mellitus type: type 2 Diabetes mellitus complication status: without complication Diabetes mellitus [facility] insulin use: unspecified intermediate project manager insulin use status Qualified Code(s): E11.9 - Type 2 diabetes mellitus without complications (9) DVT prophylaxis Current Visit: No Status: Acute Assessment and plan: JOSE theodore. Lovenox subcutaneous daily. - Subjective Interval history: Patient was seen and assessed about 8:30 AM today. She did not appear to be improved at all from yesterday's evaluation. She does appear to be more talkative and engaging. She reports diffuse pain, states that her bones hurt. She becomes almost tearful and reports that she is raising 2 grandsons, age 10 and age 16. 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 I asked if she was , she said yes he has no help. She still has same amount of weakness to left side. She was evaluated later this afternoon by neurology who reports that she is somewhat improved. Will continue to monitor her progress and continue to have neurology follow. - Constitutional Vitals: Temp Pulse Resp BP Pulse Ox 97.9 F 77 15 121/71 94 12/20/16 15:20 12/20/16 15:20 12/20/16 15:20 12/20/16 15:20 12/20/16 15:20 General appearance: Present: A&O X 3, pleasant, no acute distress, answers questions appropriately - Head Head exam: Present: normal inspection - Eye Eye exam: Present: normal appearance, conjuntiva pink - ENT ENT exam: Present: mucous membranes moist, normal exam, normal external ear exam - Neck Neck exam general surgery: Present: normal inspection, tenderness. Absent: lymphadenopathy - Respiratory Respiratory exam: Present: decreased breath sounds, CTAB. Absent: respiratory distress - Cardiovascular Cardiovascular exam: Present: RRR, +S1, +S2. Absent: diastolic murmur, systolic murmur - GI/Abdominal GI/Abdominal exam: Present: soft. Absent: distended, firm, hepatomegaly, tenderness - Neurological Exam Neurological exam: Present: alert, oriented X3, no focal deficits. Absent: facial droop, speech deficit Internal Medicine: Result - Labs CBC & Chem 7: 12/20/16 09:15 12/20/16 09:15 - ABG Interpretation ABG results: PT/INR, D-dimer PT 11.9 Seconds (9.4-12.1) 12/18/16 12:33 Consult Discharge Plan - Plan Referrals: Maria Antonia Rae CNP [Advanced Practice Nurse] - 12/26/16 1:30 pm Rigoberto Layne DO [Partnered Physician] - (Please Verify that patient has an appt on 12/25/16.) Clyde Linton DO [Partnered Physician] - (Pt needs to have an appt within 2-3 weeks.) Akhil Spivey DO [Primary Care Provider] -
[2016-12-21] MEDS: *HR* HYDROmorphone (PF) 1 MG/ML SYRINGE IVP PRN ×2 (03:26→07:55)
[2016-12-21] MEDS: *HR* OxyCODONE/APAP 10/325 TABLET PO PRN ×4 (04:04→23:18)
[2016-12-21] MEDS: diazePAM 5 MG TABLET PO PRN ×2 (04:04→21:21)
[2016-12-21] MEDS: methylPREDNISolone 125 MG/2 ML VIAL IVP SCH ×2 (05:50→12:39)
[2016-12-21 05:53] LABS: Basophils % 0.1 %; Hematocrit 38.9 % (35.3-44.9); Immature Granulocytes % 0.6 % (0-4); Immature Platelets 4.4 % (1.1-6.1); Lymphocytes # 1.5 K/mcL (0.6-4.6); Lymphocytes % 10.4 %; Mean Corpuscular HGB Conc 33.4 g/dL (31.6-35.5); Mean Corpuscular Hemoglobin 30.7 pg (28.0-33.3); Mean Platelet Volume 10.6 fL (9.4-12.4); Monocytes # 0.1 K/mcL (0.0-1.3); Neutrophils # 12.6 K/mcL (1.6-8.9); Platelet Count 309 K/mcL (140-400); Red Blood Count 4.23 M/mcL (3.82-4.97); Red Cell Distribution Width 12.4 % (11.5-14.5); Segmented Neutrophils % 87.9 %
[2016-12-21 06:05] LABS: BUN/Creatinine Ratio 18 (6-26); Blood Urea Nitrogen 16 mg/dL (7-20); Calcium 9.4 mg/dL (8.6-10.8); Carbon Dioxide 27 mEq/L (19-29); Chloride 99 mEq/L (98-109); Glucose 245 mg/dL (70-99); Osmolality,Calculated 295 (280-300); Potassium 4.3 mEq/L (3.5-4.5); Sodium 138 mEq/L (136-145); eGFR For African Americans > 60 (> 60); eGFR For Non-African Americans > 60 (> 60)
[2016-12-21] MEDS: Famotidine 20 MG TABLET PO SCH ×2 (07:53→21:22)
[2016-12-21] MEDS: Losartan/HCTZ 50-12.5 TABLET PO SCH (07:53)
[2016-12-21] MEDS: Isosorbide MONOnitrate (24 HR) 60 MG TAB.ER.24H PO SCH (07:53)
[2016-12-21] MEDS: Aspirin 81 MG TAB.CHEW PO SCH (07:53)
[2016-12-21] MEDS: Nicotine 7 MG PATCH.TD24 TD SCH ×2 (07:54→21:22)
[2016-12-21] MEDS: Insulin LISPRO 300 UNITS/3 ML VIAL SQ SCH ×4 (07:54→21:23)
[2016-12-21] MEDS: Gabapentin 300 MG CAPSULE PO SCH ×4 (07:54→21:22)
[2016-12-21] MEDS: DEXTROAMPHETAMINE PO SCH (07:55)
[2016-12-21] MEDS: AMPHETAMINE PO SCH (07:55)
[2016-12-21] MEDS: (Linaclotide [Linzess] 145 MCG) PO SCH (07:55)
[2016-12-21] MEDS: (Umeclidinium Bromide [Incruse Ellipta] 62.5 MCG) IH SCH (07:55)
[2016-12-21 09:50] LABS: Bilirubin,Urine Negative (Negative); Blood,Urine Negative (Negative); Clarity,Urine Clear (Clear); Color,Urine Yellow (Yellow); Glucose,Urine (UA) >=1000 mg/dL (Normal); Ketones,Urine Trace mg/dL (Negative); Leukocyte Esterase,Urine Negative (Negative); Nitrite,Urine Negative (Negative); PH,Urine 5.5 pH Units (5.0-8.0); Protein,Urine Trace mg/dL (Neg-Trace); Specific Gravity,Urine > 1.030 (1.010-1.025); Urobilinogen,Urine Normal (Normal)
[2016-12-21 09:52] LABS: Bacteria,Urine None Seen per hpf (None-Few); Hyaline Casts,Urine None Seen per lpf (None-Few); Squamous Epithelial Cell,Urine Moderate per lpf (None-Few); WBC,Urine 0-3 per hpf (0-3)
[2016-12-21] MEDS: Budesonide/Formoterol 80/4.5 MDI IH SCH ×2 (10:50→21:51)
--- NOTE | 2016-12-21 16:28 | Neurology Progress Note ---
Date of Encounter: 12/21/16 Time of Encounter: 16:26 Assessment and Plan (1) Cervical stenosis of spinal canal Current Visit: Yes Status: Chronic At this juncture this does not appear to be an acute neurological emergency. She maintains the ability to move the left upper and left lower extremity, she maintains control of all sphincters. She still has complaints of pain in the left neck and arm. She also continues to complain of back pain. At this juncture I would be in agreement with the recommendation of having her go to a inpatient rehabilitation center for further strengthening. She likely has some element of deconditioning, as an outpatient She can also get the EMG study of the left upper and left lower extremities. This would help to identify whether or not there is a radicular component to this. Also she will be in need of lead based paint technician. I will reevaluate her at your request. Subjective Interval history: I had the pleasure of following up with Juanita Dickson this afternoon. She was sleeping soundly when I entered the room. I had to manage her several times in order to arouse her. This is likely due to the effect of the narcotic pain medications. After aroused she was awake and alert. She feels as though she has gotten some improvement but professes ongoing pain and weakness of the left upper and left lower extremities. Oddly enough however she prefers that her bed beside tray be positioned on the left side. Also when she is talking she was using the left upper extremity expressively and I did passively notice this. She was apparently out for short time today. Objective - Constitutional Vitals: Temp Pulse Resp BP Pulse Ox 98.1 F 79 17 124/73 90 12/21/16 15:51 12/21/16 15:51 12/21/16 15:51 12/21/16 15:51 12/21/16 15:51 - Neurological Exam Additional comments: For cerebral functions she is alert and oriented to person place and time follows commands and answers questions appropriately. No agnosia and aphasia or apraxia present. Cranial nerves II through XII are all intact. Motor exam-there is giveaway weakness with direct muscle testing involving the left upper and left lower extremities. However she does use her left upper extremity when engaged in conversation expressively. She has good strength of the right upper extremity and the right lower extremity. She is able to dorsiflex and plantar flex the left foot however has giveaway weakness. She still describes a significant pain component. Sensory exam finds patchy areas of hypoesthesia of the upper and lower extremities. Deep tendon reflexes are 1 symmetrically in the biceps triceps brachial radialis and 2 symmetrically at the patella. No clonus or Babinski signs are present. There is no problem with incontinence. - VTE Documentation of Mechanical Device: Graduated compression elastic hosiery Results - Laboratory Findings CBC and BMP: 12/21/16 05:27 12/21/16 05:27 Abnormal lab findings: Abnormal lab results WBC 14.3 K/mcL (4.3-11.1) H 12/21/16 05:27 Neutrophils # 12.6 K/mcL (1.6-8.9) H 12/21/16 05:27 ESR 52 mm/hr (0-15) H 12/18/16 12:33 Glucose 245 mg/dL (70-99) H 12/21/16 05:27 POC Glucose 337 (58-89) H 12/21/16 10:52 Hemoglobin A1c 7.0 % (-5.6) H 12/20/16 09:15 Alkaline Phosphatase 128 Units/L (38-126) H 12/18/16 12:33 C-Reactive Protein 12 mg/L (Less than 5) H 12/18/16 12:33 Ur Specific [place] > 1.030 (1.010-1.025) H 12/21/16 09:20 Urine Glucose (UA) >=1000 mg/dL (Normal) H 12/21/16 09:20 Urine Ketones Trace mg/dL (Negative) H 12/21/16 09:20 Urine Microscopic RBC 3-5 per hpf (0-3) H 12/21/16 09:20 Ur Squamous Epith Cells Moderate per lpf (None-Few) H 12/21/16 09:20 Nasal Screen MRSA (PCR) Positive (Negative) A 12/19/16 13:20 Consult Discharge Plan - Plan Referrals: Maria Antonia Rae CNP [Advanced Practice Nurse] - 12/26/16 1:30 pm Rigoberto Layne DO [Partnered Physician] - (Please Verify that patient has an appt on 12/25/16.) Clyde Linton DO [Partnered Physician] - (Pt needs to have an appt within 2-3 weeks.)
--- NOTE | 2016-12-21 17:13 | Internal Med Progress Note ---
Date of Encounter: 12/21/16 Time of Encounter: 09:40 - Assessment and plan (1) Cervical stenosis of spinal canal Current Visit: Yes Status: Chronic Assessment and plan: Patient was started on methylprednisolone 125 mg IV every 6 hours. Neurology did seem to notice some improvement today which may be suggestive of a myelopathic component. Will continue the steroid and reassess tomorrow. Neurology will continue to all open. She was also seen by Dr. Castillo today. He does not feel that he requires surgery at this time and should be seen by pain management. I appreciate his recommendation and will continue to follow the recommendations of neurology, as well. Upper C-spine MRI: In C3-C4 there is disc and osteophytes narrowing the neural foramina bilaterally. C4-C5 there is disc protrusion or osteophyte measuring 2- 3 mm this results in mild narrowing of the neural foramina bilaterally. C6-C7 there is disc protrusion or osteophyte measuring 2-3 mm towards the left. There is narrowing of the left neural foramen greater than the right. C7-T1 the thecal sac and neural foramina are intact. She is a previous anterior fusion at C5-6 is new since previous study. Hardware artifact obscures and distorts anatomic detail at these levels. Disc and osteophytes result in stenosis of the thecal sac and narrowing of the neural foramina throughout the cervical region. Patient does have obvious weakness to the left side both upper and lower extremities. She was seen again today by neurology. He is in agreement with her going to inpatient rehabilitation center for further conditioning and strengthening. She can also get an EMG of the upper and lower extremities left side in the outpatient setting. Will also need to see pain management outpatient. Today we have changed the IV steroids to by mouth prednisone 40 mg daily. The IV Dilaudid has been stopped. She will have her normal home dose of Percocet. (2) Weakness of both upper extremities Current Visit: Yes Status: Acute Assessment and plan: Plan as above. Both upper and lower extremities are weak, noticeably more weak on left than on the right. Patient is unable to keep left leg raised from bed. Grasp on right side is very weak, almost nonexistent. Although she can use her left hand, and she is able to cross the left leg over the right leg. There is no facial involvement. (3) COPD (chronic obstructive pulmonary disease) Current Visit: Yes Status: Chronic Assessment and plan: Lungs are clear and diminished throughout. She denies any increased shortness of breath or dyspnea, denies new cough. There is no acute exacerbation. Continue home medications and monitor patient condition. Qualifiers: COPD type: unspecified COPD Qualified Code(s): J44.9 - Chronic obstructive pulmonary disease, unspecified (4) HLD (hyperlipidemia) Current Visit: No Status: Chronic Assessment and plan: Chronic. Continue home medications. Qualifiers: Hyperlipidemia type: mixed hyperlipidemia Qualified Code(s): E78.2 - Mixed hyperlipidemia (5) HTN (hypertension) Current Visit: No Status: Chronic Assessment and plan: Chronic. Continue home medications. Qualifiers: Hypertension type: essential hypertension Qualified Code(s): I10 - Essential (primary) hypertension (6) Tobacco abuse Current Visit: No Status: Chronic Assessment and plan: Patient states that she has not been smoking since she has been here. She said she may be able to quit. I would like to revisit smoking cessation upon discharge. (7) CAD (coronary artery disease) Current Visit: Yes Status: Chronic Assessment and plan: Prior CT last fall with stent placed in RCA. No chest pain or shortness of breath. Continue aspirin, Plavix, Coreg, Imdur, and atorvastatin Qualifiers: Coronary Disease-Associated Artery/Lesion type: [place] artery [place] vs. transplanted heart: [place] heart Associated angina: with unstable angina Qualified Code(s): I25.110 - Atherosclerotic heart disease of [place] coronary artery with unstable angina pectoris (8) Diabetes Current Visit: Yes Status: Acute Assessment and plan: Continue sliding scale insulin Continue Accu-Cheks before meals at bedtime Diabetic diet A1c 6.6 in July. Repeat A1c 7.0% today. Qualifiers: Diabetes mellitus type: type 2 Diabetes mellitus complication status: without complication Diabetes mellitus alf insulin use: unspecified paper reeler insulin use status Qualified Code(s): E11.9 - Type 2 diabetes mellitus without complications (9) DVT prophylaxis Current Visit: No Status: Acute Assessment and plan: JOSE theodore. Lovenox subcutaneous daily. - Time Spent With Patient less than 15 minutes - Subjective Interval history: Patient was seen and assessed about 9:40 AM this morning. She is sitting up in the bed, alert, awake, appears to feel better than she has in the past. Patient states again that she believes the donor bone in her neck is causing the problem. She says that she has felt sluggish since her surgery to her neck in April by Dr. Castillo. She states that her pain is no better. When I spoke with her she admitted to refusing PT because she did not want to stop eating her breakfast. Later in the day she did complete therapy. On examination, her left hand is still weak. Her left leg does appear to be a little less weak. She says that he only time she has felt better is when she has been taking her sister's antibiotics, Bactrim and Z-Kodi. She says that she feels really good when she takes her sister's antibiotics. - Constitutional Vitals: Temp Pulse Resp BP Pulse Ox 98.1 F 79 17 124/73 90 12/21/16 15:51 12/21/16 15:51 12/21/16 15:51 12/21/16 15:51 12/21/16 15:51 General appearance: Present: A&O X 3, pleasant, no acute distress, answers questions appropriately - Head Head exam: Present: normal inspection - Eye Eye exam: Present: normal appearance, conjuntiva pink - ENT ENT exam: Present: mucous membranes moist, normal exam - Neck Neck exam general surgery: Present: normal inspection. Absent: lymphadenopathy , tenderness - Respiratory Respiratory exam: Present: CTAB. Absent: rales, rhonchi, stridor, wheezes - Cardiovascular Cardiovascular exam: Present: RRR, +S1, +S2. Absent: diastolic murmur, systolic murmur - GI/Abdominal GI/Abdominal exam: Present: normal bowel sounds, soft. Absent: hepatomegaly, tenderness - Extremities Exam Extremities exam: Present: normal inspection, warm, radial pulses palpable and symetrical. Absent: pedal edema, tenderness - Back Exam Back exam: Present: normal inspection, tenderness. Absent: rash noted - Skin Skin exam: Present: dry, intact, normal color, warm. Absent: rash Internal Medicine: Result - Labs CBC & Chem 7: 12/21/16 05:27 12/21/16 05:27 Labs: Short CBC 12/21/16 Range/Units 05:27 WBC 14.3 H (4.3-11.1) K/mcL Hgb 13.0 (11.5-15.4) g/dL Hct 38.9 (35.3-44.9) % Plt Count 309 (140-400) K/mcL Neutrophils # 12.6 H (1.6-8.9) K/mcL BMP 12/21/16 05:27 Sodium 138 Potassium 4.3 Chloride 99 Carbon Dioxide 27 BUN 16 Creatinine 0.90 Glucose 245 H Calcium 9.4 Urine 12/21/16 Range/Units 09:20 Urine Color Yellow (Yellow) Urine Clarity Clear (Clear) Urine pH 5.5 (5.0-8.0) pH Units Ur Specific Ralph > 1.030 H (1.010-1.025) Urine Protein Trace (Neg-Trace) mg/dL Urine Glucose (UA) >=1000 H (Normal) mg/dL - ABG Interpretation ABG results: PT/INR, D-dimer PT 11.9 Seconds (9.4-12.1) 12/18/16 12:33 - VTE Documentation of Mechanical Device: Graduated compression elastic hosiery Consult Discharge Plan - Plan Referrals: Maria Antonia Rae CNP [Advanced Practice Nurse] - 12/26/16 1:30 pm Rigoberto Layne DO [Partnered Physician] - (Please Verify that patient has an appt on 12/25/16.) Clyde Linton DO [Partnered Physician] - (Pt needs to have an appt within 2-3 weeks.)
[2016-12-22 04:29] LABS: Basophils % 0.1 %; Hematocrit 37.3 % (35.3-44.9); Hemoglobin 12.2 g/dL (11.5-15.4); Immature Granulocytes % 1.4 % (0-4); Lymphocytes # 2.2 K/mcL (0.6-4.6); Lymphocytes % 11.1 %; Mean Corpuscular HGB Conc 32.7 g/dL (31.6-35.5); Mean Corpuscular Hemoglobin 29.9 pg (28.0-33.3); Mean Corpuscular Volume 91.4 fL (83.0-100.0); Mean Platelet Volume 10.2 fL (9.4-12.4); Monocytes # 1.1 K/mcL (0.0-1.3); Monocytes % 5.8 %; Platelet Count 301 K/mcL (140-400); Red Blood Count 4.08 M/mcL (3.82-4.97); Red Cell Distribution Width 12.3 % (11.5-14.5); Segmented Neutrophils % 81.6 %
[2016-12-22 04:43] LABS: BUN/Creatinine Ratio 22 (6-26); Blood Urea Nitrogen 19 mg/dL (7-20); Calcium 9.2 mg/dL (8.6-10.8); Carbon Dioxide 28 mEq/L (19-29); Chloride 100 mEq/L (98-109); Glucose 240 mg/dL (70-99); Osmolality,Calculated 294 (280-300); Sodium 137 mEq/L (136-145); eGFR For African Americans > 60 (> 60); eGFR For Non-African Americans > 60 (> 60)
[2016-12-22] MEDS: *HR* OxyCODONE/APAP 10/325 TABLET PO PRN (05:56)
[2016-12-22 06:44] VITALS: BP 134/80
[2016-12-22] MEDS: Budesonide/Formoterol 80/4.5 MDI IH SCH (07:38)
[2016-12-22] MEDS ORDERED: predniSONE 20 MG TABLET PO SCH (09:00)
[2016-12-22] MEDS: Isosorbide MONOnitrate (24 HR) 60 MG TAB.ER.24H PO SCH (09:24)
[2016-12-22] MEDS: Famotidine 20 MG TABLET PO SCH (09:24)
[2016-12-22] MEDS: Aspirin 81 MG TAB.CHEW PO SCH (09:24)
[2016-12-22] MEDS: Gabapentin 300 MG CAPSULE PO SCH (09:24)
[2016-12-22] MEDS: Losartan/HCTZ 50-12.5 TABLET PO SCH (09:25)
[2016-12-22] MEDS: Nicotine 7 MG PATCH.TD24 TD SCH (09:25)
[2016-12-22] MEDS: Insulin LISPRO 300 UNITS/3 ML VIAL SQ SCH (09:25)
[2016-12-22] MEDS: (Umeclidinium Bromide [Incruse Ellipta] 62.5 MCG) IH SCH (09:32)
[2016-12-22] MEDS: (Linaclotide [Linzess] 145 MCG) PO SCH (09:32)
[2016-12-22] MEDS: DEXTROAMPHETAMINE PO SCH (09:32)
[2016-12-22] MEDS: AMPHETAMINE PO SCH (09:32)
--- NOTE | 2016-12-22 11:30 | Discharge Summary ---
Date of Encounter: 12/22/16 Time of Encounter: 10:20 - Discharge Diagnosis (1) Cervical stenosis of spinal canal Priority: Primary Status: Chronic Comments: We have changed her Solu-medrol 125mg IV every 6 hours to Prednisone 40mg po daily and will taper at home. Pt is aware and agreeable. Pt remains weak on L side and has had what appears to be minimal improvement. She has been seen by neurology and they have signed off. They are in agreement with pt getting rehab/ PT, pt states that she is unable to go to an inpatient rehab due to raising her grandchildren. We also will refer her to pain management to ensure that her pain is adequately addressed and controlled. Pt appears to be apprehensive about this, I told her that I would make the referral and she did not have to go if she was not comfortable with it. (2) Weakness of both upper extremities Priority: Secondary Status: Acute Comments: Bilateral right side both upper and lower is markedly stronger than the left. (3) COPD (chronic obstructive pulmonary disease) Priority: Secondary Status: Chronic Comments: Lungs are clear and diminished throughout. No acute exacerbation. She will continue her home medications. Qualifiers: COPD type: unspecified COPD Qualified Code(s): J44.9 - Chronic obstructive pulmonary disease, unspecified (4) HLD (hyperlipidemia) Priority: Secondary Status: Chronic Comments: Chronic. Continue home medications. Qualifiers: Hyperlipidemia type: mixed hyperlipidemia Qualified Code(s): E78.2 - Mixed hyperlipidemia (5) HTN (hypertension) Priority: Secondary Status: Chronic Comments: Chronic. Well controlled in the inpt setting. Continue home medications. Qualifiers: Hypertension type: essential hypertension Qualified Code(s): I10 - Essential (primary) hypertension (6) Tobacco abuse Priority: Secondary Status: Chronic Comments: Pt states that she is not interested in any medications or patches, etc for smoking cessation. (7) CAD (coronary artery disease) Priority: Secondary Status: Chronic Comments: Prior [place] last fall with stent placed in RCA. No chest pain or SOB throughout stay. Continue ASA, Plavix, Coreg, Imdur, and statin. Qualifiers: Coronary Disease-Associated Artery/Lesion type: [place] artery [place] vs. transplanted heart: [place] heart Associated angina: with unstable angina Qualified Code(s): I25.110 - Atherosclerotic heart disease of [place] coronary artery with unstable angina pectoris (8) Diabetes Priority: Secondary Status: Acute Comments: A1c 7.0% Continue home medications. Qualifiers: Diabetes mellitus type: type 2 Diabetes mellitus complication status: without complication Diabetes mellitus snf insulin use: unspecified snf insulin use status Qualified Code(s): E11.9 - Type 2 diabetes mellitus without complications (9) DVT prophylaxis Priority: Secondary Status: Acute Comments: Lovenox subcutaneous, JOSE hose. - Discharge Medications Prescriptions: predniSONE [PredniSONE] 10 mg PO DAILY #31 tablet Home Medications: Albuterol Neb [AccuNeb] 0.63 mg IH Q6H PRN 12/27/15 [History] Dextroamphetamine/Amphetamine [Adderall Xr 15 mg Capsule] 15 mg PO QAM 12/27/15 [History] Gabapentin [Neurontin] 300 mg PO QID 12/27/15 [History] Levothyroxine [Synthroid] 100 mcg PO QAM 12/27/15 [History] Linaclotide [Linzess] 145 mcg PO DAILY 12/27/15 [History] Metformin HCl [Glucophage] 1,000 mg PO BID 12/27/15 [History] Oxygen 3 l NS HS 12/27/15 [History] Ranitidine HCl [Heartburn Relief] 150 mg PO BID 12/27/15 [History] diazePAM [Valium] 5 mg PO TID PRN 12/27/15 [History] Aspirin 81 mg PO DAILY #30 tab.chew 04/12/16 [Rx] Clopidogrel [Plavix] 75 mg PO DAILY #30 tablet 04/12/16 [Rx] Albuterol Sulfate [Albuterol Inhaler] 1 - 2 puff IH Q4-6H PRN 04/13/16 [History] Budesonide/Formoterol 80/4.5 [Symbicort 80/4.5] 2 puff IH BID 12/05/16 [History ] Carvedilol [Coreg] 6.25 mg PO BIDWM #60 tablet 12/05/16 [Rx] Isosorbide MONOnitrate (24 HR) [Imdur] 60 mg PO DAILY #30 tab.er.24h 12/05/16 [ Rx] Losartan/HCTZ [Hyzaar 50-12.5 Tablet] 2 each PO DAILY #60 tablet 12/05/16 [Rx] Nitroglycerin 0.4 mg SL Q5M PRN 12/05/16 [History] Oxycodone HCl/Acetaminophen [Percocet 10-325 mg Tablet] 1 each PO Q6H PRN [History] Atorvastatin [Lipitor] 40 mg PO Q48H 12/18/16 [History] Umeclidinium Cando [Incruse Ellipta] 62.5 mcg IH DAILY 12/18/16 [History] predniSONE [PredniSONE] 10 mg PO DAILY #31 tablet 12/22/16 [Rx] Allergies/Adverse Reactions: Allergies morphine Adverse Reaction (Verified 12/05/16 08:23) Nausea Date of admission: 12/20/16 11:02 Primary care physician: Hawk Tracy Consults: 12/20/16 11:04 Consult to Occupational Therapy [CONS] Routine Comment: Evaluate, develop and implement POC Reason for Consult: Evaluation Consult to Physical Therapy [CONS] Routine Comment: Evaluate, develop and implement POC Reason for Consult: Evaluation Discharging clinician: Meg Abdi Anticipated date of discharge: 12/22/16 - Patient Status Disposition: Home, Self-Care Condition: Good Functional capacity at discharge: uses cane/walker Overall status at discharge: patient is progressing back to baseline - Discharge Instructions Follow Up With: Maria Antonia Rae CNP [Advanced Practice Nurse] - 12/26/16 1:30 pm Rigoberto aLyne DO [Partnered Physician] - (Please Verify that patient has an appt on 12/25/16.) Clyde Linton DO [Partnered Physician] - (Pt needs to have an appt within 2-3 weeks.) Forms: ED Satisfaction Letter Additional Instructions: Please follow up with Dr. Spivey in the next few days to establish outpatient PT/rehab Please follow up with pain management for evaluation Resume your home medications and take your steroid at home in the morning. Take exactly as directed and take all of them. Return to the ER as needed for any other problems or concerns or if your symptoms become worse. - Diet and Activity Activity: increase activity as tolerated Diet: advance to your usual diet Hospital course: Ms. Dickson is a 56 year old female past medical history of COPD, tobacco abuse, hypertension, cervical stenosis spinal canal, hyperlipidemia. Patient presented to the emergency department on December 18 with complaint of weakness and significant pain with movements of bilateral upper and left lower extremity. She reported that she awakened that way the morning of admission. She had a cervical cyst final fusion in April by Dr. Castillo has a history of radiculopathy. She was to have an EMG done, it was scheduled, she has not completed it yet. CT of the cervical spine showed no acute abnormality, stable anterior fusion of C5-C6 and no evidence of central stenosis, however bilateral foraminal stenosis especially on the right. MRI showed narrowing of the left neural foramen greater than the right. Patient is noticeably weaker on the left than the right. She was unable to lift her left leg from the bed. She was given IV steroids, Solu-Medrol 125 mg every 6 hours and appeared to have some improvement. She was able to lift the leg slightly from the bed yesterday and today. She appeared to have no grasp with her left hand at all. She was unable to grasp my fingers at all with her left hand, right hand with strong. I did notice the patient was using her hands to speak this morning. Patient was unable to perform foot press/pull with her left leg at all. She has been evaluated by neurology, they have signed off. They recommend patient have PT/rehabilitation and completion of the EMG.. Patient states that she is able to go to inpatient due to raising her 2 young grandsons. She is aware that she will need to follow-up with Dr. Spivey to initiate the referral for outpatient physical therapy. She also will be referred to pain management for the back and neck pain. Several times during her visit she told me that she had bone pain, as well. Patient has been transitioned over to by mouth steroids. She will be sent home with a taper. At this time patient is anxious and is walking in her room and hallway without any apparent difficulty waiting on discharge. She states that she has to be discharged right now because her family will not wait on her. Patient has leukocytosis, most likely due to steroids. Urine is negative, patient has no fever. Blood glucose is also elevated due to steroids. Patient wanting to continue to monitor at home. She is aware of hyperglycemia with the steroid use. Vital signs are stable. Patient is ready for discharge. Time spent discussing smoking cessation with patient: 3 to 10 minutes - Time Spent with Patient Total time spent providing and/or coordinating discharge services: Less than 30 minutes - Constitutional Vitals: Temp Pulse Resp BP Pulse Ox 97.5 F L 71 16 134/80 96 12/22/16 06:43 12/22/16 06:43 12/22/16 07:39 12/22/16 06:43 12/22/16 07:39 General appearance: Present: A&O X 3, pleasant, no acute distress, answers questions appropriately - Head Head exam: Present: normal inspection - Eye Eye exam: Present: normal appearance, conjuntiva pink - ENT ENT exam: Present: mucous membranes moist, normal external ear exam - Neck Neck exam general surgery: Absent: lymphadenopathy, tenderness - Respiratory Respiratory exam: Present: CTAB. Absent: rales, respiratory distress, rhonchi, stridor, wheezes - Cardiovascular Cardiovascular exam: Present: RRR, +S1, +S2. Absent: diastolic murmur, systolic murmur - GI/Abdominal GI/Abdominal exam: Present: distended, normal bowel sounds, tenderness. Absent : hepatomegaly - Extremities Exam Extremities exam: Present: normal capillary refill, warm, radial pulses palpable and symetrical. Absent: pedal edema, tenderness - Neurological Exam Neurological exam: Present: alert, oriented X3. Absent: motor sensory deficit, strengths equal and symetr throughout, facial droop, speech deficit - Skin Skin exam: Present: dry, intact, warm. Absent: rash - VTE Documentation of Mechanical Device: Graduated compression elastic hosiery
== END 2016-12-22 12:35 | disposition home or self-care (01) | DRG 347 ==
LOC: EMEROO 11:44 → 3BNU 11:44
PROVIDERS: ADMIT Internal Medicine; ATTEND Registered Nurse

== ENCOUNTER 2022-01-23 06:54 | Inpatient (IN) ==
[2022-01-23] MEDS ORDERED: Ipratropium/Albuterol Neb 3 ML IH ONE (07:47)
[2022-01-23] MEDS ORDERED: Iopamidol - 370 500 ML MLS IVP ONE (07:47)
[2022-01-23] MEDS ORDERED: methylPREDNISolone 125 MG/2 ML VIAL IVP ONE (07:47)
[2022-01-23] MEDS ORDERED: Albuterol 2.5 MG/3 ML NEBULIZER IH ONE ×2 (07:47→10:43)
[2022-01-23 08:09] LABS: Basophils % 0.5 %; Eosinophils % 0.4 %; Hematocrit 49.5 % (35.3-44.9); Hemoglobin 15.6 g/dL (11.5-15.4); Immature Granulocytes % 0.4 % (0-4); Lymphocytes # 1.9 K/mcL (0.6-4.6); Mean Corpuscular HGB Conc 31.5 g/dL (31.6-35.5); Mean Corpuscular Hemoglobin 30.1 pg (28.0-33.3); Mean Corpuscular Volume 95.6 fL (83.0-100.0); Mean Platelet Volume 10.1 fL (9.4-12.4); Monocytes # 0.9 K/mcL (0.0-1.3); Monocytes % 12.2 %; Neutrophils # 4.6 K/mcL (1.6-8.9); Platelet Count 284 K/mcL (140-400); Red Blood Count 5.18 M/mcL (3.82-4.97); Red Cell Distribution Width 12.2 % (11.5-14.5); Segmented Neutrophils % 61.5 %; White Blood Count 7.5 K/mcL (4.3-11.1)
[2022-01-23 08:12] LABS: ABG Base Excess 11 mEq/L (-2 to 3); ABG HCO3 39 mEq/L (21-27); ABG Oxygen Saturation 94 % (95-98); ABG PCO2 62 mmHg (35-45); ABG PH 7.41 pH Units (7.32-7.45); ABG PO2 73 mmHg (85-104); ABG TCO2 41 mEq/L (20-26)
[2022-01-23 08:27] LABS: Alanine Aminotransferase 22 Units/L (7-52); Albumin 4.1 g/dL (3.5-5.7); Albumin/Globulin Ratio 1.1 (1.1-2.2); Alkaline Phosphatase 115 Units/L (34-104); Aspartate Amino Transferase 18 Units/L (13-39); BUN/Creatinine Ratio 19 (6-26); Bilirubin,Direct 0.2 mg/dL (0.0-0.2); Bilirubin,Indirect 0.7 mg/dL (0.0-1.0); Bilirubin,Total 0.9 mg/dL (0.3-1.0); Blood Urea Nitrogen 11 mg/dL (8-23); Calcium 9.5 mg/dL (8.6-10.3); Carbon Dioxide 43 mEq/L (23-29); Chloride 89 mEq/L (98-107); Globulin 3.6 g/dL (2.4-3.5); Glucose 145 mg/dL (70-105); Osmolality,Calculated 284 (280-300); Potassium 3.6 mEq/L (3.5-5.1); Sodium 136 mEq/L (136-145); Total Protein 7.7 g/dL (6.4-8.9); Troponin I 0.04 ng/mL (< 0.04); eGFR For African Americans > 60 (> 60); eGFR For Non-African Americans > 60 (> 60)
[2022-01-23] MEDS ORDERED: diazePAM 10 MG/2 ML SYRINGE IVP ONE (10:43)
[2022-01-23] MEDS ORDERED: Ondansetron 4 MG/2 ML VIAL IVP PRN (11:27)
[2022-01-23] MEDS ORDERED: Azithromycin 500 MG in 0.9 % Sodium Chloride 250 ML IVPB SCH (12:00)
[2022-01-23] MEDS ORDERED: amLODIPine 5 MG TABLET PO SCH (14:30)
[2022-01-23] MEDS ORDERED: *HR* LORazepam 2 MG/ML VIAL IVP ONE (17:20)
[2022-01-23] MEDS: carvediloL 6.25 MG TABLET PO SCH (17:36)
[2022-01-23] MEDS: *HR* Heparin 5,000 UNIT/ML VIAL SQ SCH (17:37)
[2022-01-24] MEDS ORDERED: Albuterol Neb 0.63 MG/3 ML VIAL IH PRN (00:40)
[2022-01-24] MEDS: *HR* LORazepam 0.5 MG TABLET PO PRN ×2 (04:09→13:11)
[2022-01-24 05:51] LABS: Basophils % 0.3 %; Hematocrit 50.9 % (35.3-44.9); Hemoglobin 16.3 g/dL (11.5-15.4); Immature Granulocytes % 0.7 % (0-4); Lymphocytes # 1.5 K/mcL (0.6-4.6); Lymphocytes % 13.4 %; Mean Corpuscular Hemoglobin 29.9 pg (28.0-33.3); Mean Corpuscular Volume 93.4 fL (83.0-100.0); Mean Platelet Volume 10.2 fL (9.4-12.4); Monocytes # 0.4 K/mcL (0.0-1.3); Monocytes % 3.4 %; Platelet Count 332 K/mcL (140-400); Red Blood Count 5.45 M/mcL (3.82-4.97); Red Cell Distribution Width 12.2 % (11.5-14.5); Segmented Neutrophils % 82.2 %; White Blood Count 10.9 K/mcL (4.3-11.1)
[2022-01-24 06:11] LABS: BUN/Creatinine Ratio 33 (6-26); Blood Urea Nitrogen 18 mg/dL (8-23); Calcium 9.5 mg/dL (8.6-10.3); Carbon Dioxide 35 mEq/L (23-29); Chloride 90 mEq/L (98-107); Glucose 213 mg/dL (70-105); Osmolality,Calculated 290 (280-300); Potassium 3.8 mEq/L (3.5-5.1); Sodium 136 mEq/L (136-145); eGFR For African Americans > 60 (> 60); eGFR For Non-African Americans > 60 (> 60)
[2022-01-24] MEDS: *HR* Heparin 5,000 UNIT/ML VIAL SQ SCH (06:19)
[2022-01-24] MEDS ORDERED: amLODIPine 5 MG TABLET PO SCH (09:00)
[2022-01-24] MEDS: dexAMETHasone 4 MG TABLET PO SCH (09:19)
[2022-01-24] MEDS: carvediloL 6.25 MG TABLET PO SCH ×2 (09:19→17:28)
[2022-01-24] MEDS: Azithromycin 250 MG TABLET PO SCH (09:20)
[2022-01-24 10:44] LABS: Adenovirus Not Detected (Not Detect); Bordetella Pertussis Not Detected (Not Detect); Chlamydophila pneumoniae Not Detected (Not Detect); Coronavirus 229E Not Detected (Not Detect); Coronavirus HKU1 Not Detected (Not Detect); Coronavirus NL63 Not Detected (Not Detect); Coronavirus OC43 Not Detected (Not Detect); Human Metapneumovirus Not Detected (Not Detect); Human Rhinovirus/Enterovirus Not Detected (Not Detect); Influenza A Subtype 2009 H1 Not Detected (Not Detect); Influenza B Not Detected (Not Detect); Mycoplasma pneumoniae Not Detected (Not Detect); Parainfluenza Virus 1 Not Detected (Not Detect); Parainfluenza Virus 2 Not Detected (Not Detect); Parainfluenza Virus 3 Not Detected (Not Detect); Parainfluenza Virus 4 Not Detected (Not Detect); Respiratory Syncytial Virus Not Detected (Not Detect)
[2022-01-24 10:45] LABS: SARS-CoV-2 DETECTED (Not Detect)
[2022-01-24 11:59] LABS: Amphetamine Screen,Urine Negative ng/mL (Cutoff=1000); Barbiturate Screen,Urine Negative ng/mL (Cutoff=200); Benzodiazepines Screen,Urine Negative ng/mL (Cutoff=200); Cannabinoid Screen,Urine Negative ng/mL (Cutoff = 50); Cocaine Screen,Urine Negative ng/mL (Cutoff= 300); Opiate Screen,Urine Positive ng/mL (Cutoff=300); Phencyclidine Screen,Urine Negative ng/mL (Cutoff=25)
[2022-01-24] MEDS ORDERED: Acetaminophen 325 MG TABLET PO PRN (14:54)
[2022-01-24] MEDS: QUEtiapine Fumarate 25 MG TABLET PO SCH (21:28)
[2022-01-24] MEDS: Melatonin 3 MG TABLET PO SCH (21:28)
[2022-01-25] MEDS: *HR* Enoxaparin 40 MG/0.4 ML SYRINGE SQ SCH (09:51)
[2022-01-25] MEDS: dexAMETHasone 4 MG TABLET PO SCH (09:51)
[2022-01-25] MEDS: Azithromycin 250 MG TABLET PO SCH (09:53)
[2022-01-25] MEDS: amLODIPine 5 MG TABLET PO SCH (09:53)
[2022-01-25] MEDS: carvediloL 6.25 MG TABLET PO SCH ×2 (10:18→20:13)
[2022-01-25] MEDS: Melatonin 3 MG TABLET PO SCH (20:13)
[2022-01-25] MEDS: QUEtiapine Fumarate 25 MG TABLET PO SCH (20:13)
[2022-01-26] MEDS ORDERED: GuaiFENesin/Dextromethorphan TABLET PO PRN (04:25)
[2022-01-26] MEDS: *HR* Enoxaparin 40 MG/0.4 ML SYRINGE SQ SCH (08:44)
[2022-01-26] MEDS: Azithromycin 250 MG TABLET PO SCH (08:44)
[2022-01-26] MEDS: amLODIPine 5 MG TABLET PO SCH (08:44)
[2022-01-26] MEDS: dexAMETHasone 4 MG TABLET PO SCH (08:44)
[2022-01-26] MEDS: carvediloL 6.25 MG TABLET PO SCH (08:44)
[2022-01-26 08:57] VITALS: BP 145/58; PULSE 68; TEMP 97.4
[2022-01-26] MEDS ORDERED: hydrOXYzine pamoate 25 MG CAPSULE PO ONE ×2 (10:29→10:30)
[2022-01-26 13:55] VITALS: O2SAT 97
== END 2022-01-26 14:10 | disposition home or self-care (01) | DRG 177 ==
LOC: EMEROOARM 06:54 → 2NENU 06:54 → SUATTDRO 01-24 17:46
PROVIDERS: ADMIT Internal Medicine; ATTEND Internal Medicine